=== PATIENT | female | born 1955 | race Caucasian/White ===

== ENCOUNTER 2017-07-15 08:58 | Emergency (ER) | payer OTHER, SELFPAY | END 2017-07-15 09:31 | disposition home or self-care (01) | PROVIDERS: Emergency Provider Nurse Practitioner Family; Family Provider Emergency Medicine; Visit Provider Nurse Practitioner Family | DX: J20.9 Acute bronchitis, unspecified (principal); F17.210 Nicotine dependence, cigarettes, uncomplicated; Z88.0 Allergy status to penicillin; Z79.82 Long term (current) use of aspirin; Z79.899 Other long term (current) drug therapy; I10 Essential (primary) hypertension | CPT/HCPCS: 99201 ==

== ENCOUNTER → 2018-04-11 11:08 | Outpatient (CLI) | payer BC, SELFPAY ==
[2018-04-11 14:54] LABS: Alanine Aminotransferase 35 U/L (12-78); Alkaline Phosphatase 183 U/L (46-116); Aspartate Amino Transferase 15 U/L (15-37); Bilirubin,Direct 0.1 mg/dL (0.0-0.2); Bilirubin,Indirect 0.2 mg/dL (0.0-0.9); Bilirubin,Total 0.3 mg/dL (0.2-1.0); Chol/HDL Ratio 3.8 (1-3.5); Cholesterol 220 mg/dL (140-200); HDL Cholesterol 58 mg/dL (29-89); LDL Cholesterol 127 mg/dL (0-130); Total Protein,Serum 6.5 gm/dL (6.4-8.2); Triglycerides 174 mg/dL (30-200); VLDL Cholesterol 35 mg/dL (0-40)
== END ==
PROVIDERS: PCP Emergency Medicine; Visit Provider Urology
DX: E78.5 Hyperlipidemia, unspecified (principal); I25.10 Atherosclerotic heart disease of native coronary artery without angina pectoris
CPT/HCPCS: 36415; 80061; 80076

== ENCOUNTER → 2018-04-24 06:06 | Outpatient (CLI) | payer BC, SELFPAY ==
--- NOTE | 2018-04-24 06:09 | NM_ITS ---
History and Indications: Coronary artery disease, hypertension, hyperlipidemia, tobacco use, family history Procedure: Patient received a 0.4 mg of intravenous Lexiscan, resting heart rate was 71 bpm resting blood pressure 138/78, with Lexiscan maximum heart rate achieved was 100 beats per minute, which is less than 85% of the pressure 123/57. With Lexiscan patient complained of shortness of breath. Electrocardiogram: Resting electrocardiogram showed sinus rhythm nonspecific ST-T changes, with Lexiscan there is less than 1.[address] segment depression noted from the baseline EKG. The EKG portion of the Lexiscan Myoview is nondiagnostic. Cardiac stress and resting SPECT images: Cardiac stress and rest SPECT images were obtained using technetium 99 Myoview 31.2 mCi at stress and 10.6 mCi at rest. Gated SPECT further analysis of segmental wall motion and calculation of the ejection fraction also done. Cardiac stress and the suspect show uniform myocardial activity without segmental perfusion abnormality, computer derived ejection fraction is over 65% with no regional wall motion abnormality, right ventricle is normal size and contractility. Conclusion: 1. The EKG portion of the Lexiscan is nondiagnostic. 2. No scintigraphic evidence of reversible, computer derived ejection fraction is over 65% with no regional wall motion abnormality, right ventricle is normal size and contractility. 3. Normal Lexiscan Myoview study.
--- NOTE | 2018-04-24 06:09 | XR_ITS ---
XR chest 2V HISTORY: ITS.REASON: Tobacco abuse, CAD ORDERING PHYSICIAN: Gabino Scott MD PATIENT AGE: 62 years COMPARISON: 04/27/2017 FINDINGS: The cardiomediastinal silhouette and pulmonary vascularity are within normal limits. Coronary artery stents are present. Calcified granuloma right lung base The lungs are clear without infiltrates, suspicious nodules, or pleural effusions. No acute bony abnormalities. IMPRESSION: No change with no acute finding
--- NOTE | 2018-04-24 07:10 | HMH.ITSHM ---
NITRO MONTELUKAST DILTIAZEM CITALOPRAM PLAVIX ATORVASTATIN ASA ALBUTEROL
== END ==
PROVIDERS: Family Provider Emergency Medicine; PCP Emergency Medicine; Visit Provider Internal Medicine
DX: I25.10 Atherosclerotic heart disease of native coronary artery without angina pectoris (principal); I11.9 Hypertensive heart disease without heart failure; E78.5 Hyperlipidemia, unspecified; F17.200 Nicotine dependence, unspecified, uncomplicated; Z95.5 Presence of coronary angioplasty implant and graft
CPT/HCPCS: 71046; 78452; 93017; A9502; J2785

== ENCOUNTER → 2018-06-06 14:32 | Outpatient (CLI) | payer BC, SELFPAY ==
--- NOTE | 2018-06-06 14:35 | CT_ITS ---
CT sinus wo con CLINICAL INDICATION: Chronic sinusitis, facial pressure ITS.REASON: Sinusitis ORDERING PHYSICIAN: Benito Callejas MD PATIENT AGE: 63 years COMPARISON: None TECHNIQUE:Axial images obtained with sagittal and coronal reformats. All CT scans at the facility use one or more dose reduction, viz: automated exposure control, ma/kV adjustment per patient size (including targeted exams where dose is matched to indication, i.e. head), or iterative reconstruction technique. FINDINGS: There is opacification of the mid left ethmoid air cell and there is minimal mucosal thickening involving the floor the right maxillary sinus. No air-fluid levels are evident. No sinus mass. The sphenoid and frontal sinuses are unremarkable. There is mild rightward nasal septal deviation. The ostomy or units are patent. The orbits have an unremarkable appearance. No mastoid effusion. The middle ears are aerated. TMJs are unremarkable. IMPRESSION: 1. No evidence of acute sinusitis. 2. Mild sinus inflammatory changes with opacified left mid ethmoid air cell minimal mucosal thickening in the right maxillary sinus 3. Rightward nasal septal deviation
== END ==
PROVIDERS: PCP Emergency Medicine; Visit Provider Otolaryngology
DX: J32.9 Chronic sinusitis, unspecified (principal)
CPT/HCPCS: 70486

== ENCOUNTER → 2018-08-23 08:34 | Outpatient (CLI) | payer BC, SELFPAY ==
--- NOTE | 2018-08-23 08:39 | NM_ITS ---
NM hepatobiliary w pharm HISTORY: Abdominal pain with nausea and diarrhea, sludge on ultrasound ITS.REASON: ruq pain ORDERING PHYSICIAN: Hyacinth Buckley PATIENT AGE: 63 years COMPARISON: None DOSE: 8.05 mCi technetium Choletec 1.7 mcg of CCK. No pain reported with CCK. FINDINGS: Homogeneous activity is present within the hepatic parenchyma. Activity is present in the gallbladder by 10 minutes. Activity is present in the small bowel by 10 minutes. The gallbladder ejection fraction is calculated to be 18% The patient did not report pain or other symptoms during CCK infusion. IMPRESSION: Unremarkable hepatobiliary scan and gallbladder ejection fraction. No evidence of common or cystic duct obstruction The gallbladder ejection fraction is low at 18%. No pain reported with CCK infusion
--- NOTE | 2018-08-23 08:39 | MM_ITS ---
MM Dig screening mamm BI w/CAD ORDERING PHYSICIAN : Hyacinth Buckley PATIENT AGE: 63 years GENDER: Female COMPARISON: April 2017, & January 2015 INDICATION: .Routine Screening. No hormones. No complaints.. Family history. Mother with breast cancer postmenopausal TECHNIQUE: Standard CC and MLO images were obtained. R2 CAD reviewed. Additional left breast CC nipple profile view FINDINGS: Low-density breast bilaterally with no dominant breast lesion/ mass. No suspicious calcifications either breast. RIGHT BREAST:Stable. Follow up one year LEFT BREAST: There is a superficial dermal nodule marked at the deep medial left breast.. Marked with a mole marker. It is seen on both views and does appear an has shown progressive enlargement compared to 2015 & 2017 mammogram studies.. . Smooth Well-defined margins This this enlarging, most likely sebaceous cyst Now measures up to 18 mm diameter on today's study. In 2015 at measured up to 1 cm diameter. Clinical correlation and inspection of this skin skin nodule required here.... & depending on its character clinically it may you may want to consider local excision or possibly to dermatology consult. (I as I recall there are 3 techniques to remove sebaceous cyst: conventional wide excision, minimal excision and punch biopsy excision) .. Although we could perform FNA sampling under ultrasound I doubt this would be of much benefit, except to further confirm this as a benign indolent entity which already strongly favor it is. I see that there was a previous ultrasound of this area May 12, 2017 which was strongly suggestive of a debris-filled cyst at 9:00/likely Semisolid material involving the dermal layer & most consistent with a sebaceous cyst. IMPRESSION: . 1. No suspicious lesions arising from breasts themselves. 2. There is a Enlarging Skin Nodule at far Medial Left Breast again noted..Suspect likely sebaceous cyst based on its appearance 2017 studies This has shown gradual progressive enlargement since 2015 and 2017 mammogram. Warrants clinical inspection & correlation.. . Although most likely benign sebaceous cyst type feature, may want to consider surgical excision or dermatology consult if this area problematic. Or continues to enlarge. 3. From imaging perspective ,suggest repeat left mammogram survey 6-7 months to evaluate for further enlargement of this benign-appearing feature, if it is not further pursued clinically BI-RADS Category: 3 Probably Benign Finding Short Term Follow-up RECOMMENDED FOLLOW-UP: 6M 6 MONTH FOLLOW-UP (A letter has been sent to the patient regarding results of the study.)
== END ==
PROVIDERS: PCP Nurse Practitioner Family; Visit Provider Nurse Practitioner Family
DX: Z12.31 Encounter for screening mammogram for malignant neoplasm of breast (principal); K82.8 Other specified diseases of gallbladder; R10.11 Right upper quadrant pain
CPT/HCPCS: 77067; 78227; A9537; J2805

== ENCOUNTER → 2019-01-22 12:50 | Outpatient (POV) | payer BC, SELFPAY | PROVIDERS: Visit Provider Specialist | DX: R20.0 Anesthesia of skin (principal); R20.2 Paresthesia of skin; M25.522 Pain in left elbow | CPT/HCPCS: 95886; 95908 ==

== ENCOUNTER → 2019-02-19 09:41 | Outpatient (CLI) | payer BC, SELFPAY ==
--- NOTE | 2019-02-19 09:46 | XR_ITS ---
XR wrist LT min 3V HISTORY ITS.REASON: pain ORDERING PHYSICIAN: Edilma Palomino MD PATIENT AGE: 63 years Comparison: None FINDINGS There are mild osteoarthritic changes of the first metacarpal carpal joint. No fracture or dislocation. No lytic or blastic change. 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
[2019-02-19 12:24] LABS: Basophils # 0.1 K/mm3 (0-0.2); Eosinophils # 0.2 K/mm3 (0.0-0.4); Hematocrit 49.9 % (37.0-47.0); Hemoglobin 16.1 g/dL (12.2-16.2); Lymphocytes # 3.1 K/mm3 (0.7-4.5); Lymphocytes % 40.5 % (10-50); Mean Corpuscular HGB Conc 32.3 g/dL (31.8-35.4); Mean Corpuscular Hemoglobin 29.5 pg (27.0-31.2); Mean Corpuscular Volume 91.4 fl (81-99); Mean Platelet Volume 7.7 fl (7.4-10.4); Monocytes # 0.4 K/mm3 (0.1-1.0); Monocytes % 5.6 % (1.7-9.3); Neutrophils # 3.9 K/mm3 (1.8-7.8); Neutrophils % 50.9 % (37.0-80.0); Platelet Count 289 K/mm3 (142-424); Red Blood Count 5.46 M/mm3 (4.20-5.40); White Blood Count 7.7 K/mm3 (4.8-10.8)
[2019-02-19 13:04] LABS: INR 0.92 (0.9-1.1); Prothrombin Time 9.6 seconds (9.4-11.8)
[2019-02-19 13:11] LABS: Alanine Aminotransferase 45 U/L (12-78); Albumin Level 4.2 gm/dL (3.4-5.0); Albumin/Globulin Ratio 1.6 (1.1-1.8); Alkaline Phosphatase 203 U/L (46-116); Anion Gap 14.4 mEq/L (5-15); Aspartate Amino Transferase 20 U/L (15-37); Bilirubin,Total 0.3 mg/dL (0.2-1.0); Blood Urea Nitrogen 9 mg/dL (7-18); Calcium 9.4 mg/dL (8.5-10.1); Carbon Dioxide 27 mmol/L (21.0-32.0); Chloride 105 mmol/L (98-107); Creatinine,Serum 0.72 mg/dL (0.55-1.02); Estimated Glomerular Filt Rate 82 ml/min (>60); GFR (African American) 99 ML/MIN (>60); Globulin 2.6 gm/dl (1.3-3.2); Glucose 90 mg/dL (74-106); Potassium 4.4 mmoL/L (3.5-5.1); Sodium 142 mmol/L (136-145); Total Protein,Serum 6.8 gm/dL (6.4-8.2)
== END ==
PROVIDERS: PCP Emergency Medicine; Visit Provider Orthopaedic Surgery
DX: R20.0 Anesthesia of skin (principal); R20.2 Paresthesia of skin; G56.02 Carpal tunnel syndrome, left upper limb
CPT/HCPCS: 36415; 73110; 80053; 85025; 85610

== ENCOUNTER → 2019-02-19 12:03 | Outpatient (CLI) | payer BC, SELFPAY | PROVIDERS: Visit Provider Orthopaedic Surgery | DX: G56.02 Carpal tunnel syndrome, left upper limb (principal) | CPT/HCPCS: 36415; 80053; 85025; 85610; 93005 ==

== ENCOUNTER 2019-04-26 10:00 | Outpatient (RCR) | payer BC, SELFPAY ==
--- NOTE | 2019-03-22 09:42 | HMH.OTOPEV ---
OT Inpatient Evaluation Rehab OT Outpatient Eval Start: 03/22/19 09:20 Freq: Status: Active Protocol: Document 03/22/19 09:20 TFRY (Rec: 03/22/19 09:42 TFRY [id number]) Electronically Signed By Demetra Mahan, OT 03/22/19 09:20 Outpatient Therapy Subjective History Subjective History This is a 63 year old right handed female referred to occupational therapy as patient is status post left carpal tunnel release and cubital tunnel release with ulnar nerve transposition on . Patient reports that they have been bothering her for years but got that she was unable to do her job as her hand was going numb. Chief Complaint Pain Symptom Type Ache,Dull Symptoms Relieved By Rest/Positioning,OTC Meds Symptoms Aggravated By Physical Activity Prior Functional Limitations None Current Functional Limitations Reaching,Lifting,Housework, Sleeping Symptom Description Activity Dependent Level of pain today (0-10) 4 Pain scale - at its best (0-10) 1 Pain scale - at its worst (0-10) 4 Shoulder/Elbow Eval Shoulder Objective Measurements Elbow Objective Measurements Elbow ROM Left decreased ROM elbow exam standard left pain with active ROM elbow exam standard left pain with passive ROM elbow exam left standard Elbow Extension Active Range of Motion ( 22 degrees) Elbow Extension Passive Range of Motion 10 (degrees) Elbow Flexion Active Range of Motion ( 110 degrees) Elbow Flexion Passive Range of Motion ( 134 degrees) Elbow Pronation of Forearm Range of WFL Motion (degrees) Elbow Supination of Forearm Range of WFL Motion (degrees) Elbow ROM Limitations Pain Elbow MMT Elbow/Forearm Strength Reason Not Orthopedic Precautions Measured Wrist/Hand Eval Wrist Range of Motion Wrist ROM Reason Not Measured Within Functional Limits Wrist Manual Muscle Testing Left Wrist Extension Strength Grade 3+ Fair+ Wrist Flexion Strength Grade 3+ Fair+ Wrist Radial Deviation Strength Grade 3+ Fair+ Wrist Ulnar Deviation Strength Grade 3+ Fair+ OT Outpatient Assessment Impairments Problems/Impairments Impaired Range of Motion, Impaired Strength,Impaired Lifting,Impaired Household Care,Impaired Work Activ
== END 2019-04-26 10:05 | disposition home or self-care (01) ==
LOC: OT 10:00
PROVIDERS: Visit Provider Orthopaedic Surgery
DX: G56.01 Carpal tunnel syndrome, right upper limb (principal)
CPT/HCPCS: 97014; 97110; 97140; 97165; G0283

== ENCOUNTER 2019-12-07 17:42 | Emergency (ER) | payer BC, SELFPAY ==
[2019-12-07 17:55] VITALS: BP 143/86; PULSE 92; RESP 22; TEMP 36.8; O2SAT 95; BMI 32.8
--- NOTE | 2019-12-07 18:00 | HMH.EDUTC ---
[facility] [place] Disposition Clinical Impression: Sinusitis Qualifiers: Sinusitis location: unspecified location Chronicity: acute Recurrence: not specified as recurrent Qualified Code(s): J01.90 - Acute sinusitis, unspecified Disposition: Home, Self-Care Condition on Discharge: Good Instructions: Sinusitis, Sinus Headache, DI for Sinusitis Additional Instructions: Start antibiotic. Sinus infections may take 2-3 days to notice much improvement so be sure to use conservative measures as discussed for symptoms Flonase 2 spray in each nostril daily to help with nasal congestion, sinus an ear pressure/inflammation Lots of Fluids Sleep elevated Humidifer/vaporizer Over the counter Motrin and/or Tylenol as directed on package as needed for pain and fever Follow up with family doctor if no improvement or any worsening of symptoms Rest and plenty of fluids Return if needed Straight to ER if any life threatening symptoms Prescriptions: Azithromycin [Z-Christoph 250mg Tab] 250 mg PO DIRECTED #6 tab Transmission Status: Pending to [id number] Referrals: Asaf Lubin MD [Primary Care Provider] - As needed Forms: Work/School Release Medical Decision Making - Barber Inquiry Pt receiving controlled substance: No Barber was queried for this patient: No Vital Signs: 12/07/19 17:55 Temperature 98.3 F Temperature Source Oral Pulse Rate [Right Brachial] 92 H Respiratory Rate 22 Blood Pressure [Right Arm] 143/86 H Blood Pressure Mean [Right Arm] 105 Blood Pressure Source [Right Arm] Automatic Cuff Blood Pressure Position [Right Arm] Sitting 02 Sat by Pulse Oximetry 95 Oxygen Delivery Method Room Air - Lab Data Lab results reviewed: Yes: I reviewed the patient's lab results. - Reevaluation(s) Time: 18:09 Reevaluation #1: Patient states that she has taken azithromycin before without reactions or complications [facility] [place] HPI - General Stated complaint: WEAKNESS,PAIN,LIGHT HEADED Time Seen by Provider: 12/07/19 18:00 Mode of Arrival: Ambulatory Source of Information: Patient Limitations: No Limitations Description of Symptoms (Recalled from Triage Doc. by RN): PATIENT C/O WEAKNESS, PAIN IN BACK AND KNEES, AND NAUSEA X 1 WEEK; NO KNOWN CONTACTS, PATIENT WORKS AT [employer] Symptoms (Recalled from RN notes): Yes Resp Symptoms (Recalled from RN notes): No Skin Symptoms (Recalled from RN notes): No MS Symptoms (Recalled from RN notes): No Functional Status (Recalled from RN notes): WNL - History of Present Illness Provider Complaint: Patient state that she hasnt been well for about a week States that she feels run down, tired, sinus pain and pressure and achy like feeling in her lower back and some burning with urination and nausea on and off wanted to get checked State that when she bends over she has pressure like feeling in her face around her eyes and cheeks like she has had before with sinus infection and wanted to get checked for UTI - Related Data Home Medications Medication Instructions Recorded Confirmed Aspirin [Low Dose Aspirin EC] 81 mg PO DAILY 10/23/17 10/14/19 Cetirizine HCl 10 mg PO DAILY 03/05/19 10/14/19 Montelukast Sodium See Rx Instructions .ROUTE .COMPLEX 10/14/19 10/14/19 Previous Rx's Medication Instructions Recorded nitroglycerin 0.4 mg sublingual 0.4 mg SUBLINGUAL Q5M PRN #25 tab 10/04/17 tablet Albuterol Sulfate [Albuterol HFA 1 - 2 puffs IH Q4-6H PRN #1 inh 01/20/18 Inhaler] atorvastatin 80 mg tablet 80 mg PO DAILY #90 tab 10/31/18 Albuterol Sulfate [Albuterol HFA 1 - 2 puffs IH Q4-6H PRN #1 inh 03/28/19 Inhaler] diltiazem HCl 240 mg 240 mg PO DAILY #90 cap 05/01/19 capsule,extended release 24 hr Promethazine/Dextromethorphan 5 ml PO Q6HP PRN #480 ml 10/14/19 [Promethazine-Dm Syrup] Albuterol Sulfate [Albuterol HFA 1 - 2 puffs IH Q4-6H PRN #1 inh 10/18/19 Inhaler] Azithromycin [Z-Christoph 250mg Tab*] 250 mg PO UD DOSE PK #6 tab 10/18/19 citalopram 40
[2019-12-07 18:10] VITALS: BP 143/86; PULSE 92; RESP 22; TEMP 36.8; O2SAT 95
[2019-12-07 18:11] LABS: Apearance,Urine Clear (Clear); Bilirubin,Urine Negative (Negative); Blood, Urine Negative (Negative); Color,Urine Yellow (Yellow); Glucose,Urine (UA) Negative (Negative); Ketones,Urine Negative (Negative); Protein,Urine Negative (Negative); Specific Gravity, Urine 1.005 (1.005-1.030)
[2019-12-07 18:12] LABS: UTC Leukocyte Esterase,Urine Negative (Negative); UTC Nitrate,Urine Negative (Negative); Urobilinogen,Urine 0.2 EU/dl (0.2)
== END 2019-12-07 18:12 | disposition home or self-care (01) ==
PROVIDERS: Emergency Provider Nurse Practitioner; PCP Emergency Medicine
DX: J01.90 Acute sinusitis, unspecified (principal); M54.5 Low back pain; I10 Essential (primary) hypertension; E78.5 Hyperlipidemia, unspecified; F17.210 Nicotine dependence, cigarettes, uncomplicated
CPT/HCPCS: 81003; 99201

== ENCOUNTER 2019-12-21 09:48 | Emergency (ER) | payer BC, SELFPAY ==
[2019-12-21 09:48] VITALS: BP 90/79; PULSE 83; RESP 18; TEMP 37.3; O2SAT 96; BMI 32.8
--- NOTE | 2019-12-21 09:49 | HMH.EDGENADL ---
ED Disposition Clinical Impression: Atypical chest pain Disposition: Home, Self-Care Condition on Discharge: Good Instructions: DI for Atypical Chest Pain Additional Instructions: Additional instructions for CHEST PAIN: See Dr. Scott next week, call for appointment. Return immediately if worsening chest pain, vomiting, shortness of breath, fever, coughing of blood. Referrals: Provider,Referral, [Referring] - - Critical Care Critical Care Time: No Attestation: On , the high probability of a clinically significant, sudden or life threatening deterioration of the following system(s) required my full and direct attention, intervention and personal management. The time I documented below is in addition to time spent performing reported procedures but includes the following listed in this critical care notation. Medical Decision Making - Medical Records Medical records reviewed: Yes: I reviewed the patient's medical records. - Barber Inquiry Pt receiving controlled substance: No Vital Signs: 12/21/19 09:48 12/21/19 09:57 12/21/19 10:13 Temperature 99.1 F Temperature Source Oral Pulse Rate [Right] 83 75 Respiratory Rate 18 Blood Pressure [Right Arm] 90/79 L 136/78 120/53 L Blood Pressure Mean [Right Arm] 82 97 75 Blood Pressure Source [Right Arm] Automatic Cuff Blood Pressure Position [Right Arm] Sitting 02 Sat by Pulse Oximetry 96 95 Oxygen Delivery Method Room Air 12/21/19 11:01 12/21/19 13:00 Temperature Temperature Source Pulse Rate [Right] 62 74 Respiratory Rate Blood Pressure [Right Arm] 141/68 H 136/89 Blood Pressure Mean [Right Arm] 92 104 Blood Pressure Source [Right Arm] Automatic Cuff Automatic Cuff Blood Pressure Position [Right Arm] Sitting Sitting 02 Sat by Pulse Oximetry 95 97 Oxygen Delivery Method Room Air Room Air - Lab Data Lab results reviewed: Yes: I reviewed the patient's lab results. Lab Results 12/21/19 09:50: WBC 8.4, RBC 5.07, Hgb 15.5, Hct 46.2, MCV 91.1, MCH 30.6, MCHC 33.6, RDW 13.4, Plt Count 234, MPV 8.2, Neut % (Auto) 48.8, Lymph % (Auto) 38.7, [place] % (Auto) 6.8, Eos % (Auto) 3.3, Baso % (Auto) 2.3 H, Neut # (Auto) 4.1, Lymph # (Auto) 3.3, [place] # (Auto) 0.6, Eos # (Auto) 0.3, Baso # (Auto) 0.2 12/21/19 09:50: Sodium 137, Potassium 4.0, Chloride 102, Carbon Dioxide 24, Anion Gap 15.0, BUN 11, Creatinine 0.70, Estimated Creat Clear 76, Estimated GFR 85, Est GFR ( Amer) 102, Glucose 107 H, Calcium 9.4, Total Bilirubin 0.3, AST 38 H, ALT 37, Alkaline Phosphatase 202 H, Troponin I < 0.01, Total Protein 7.3, Albumin 4.9, Globulin 2.4, Albumin/Globulin Ratio 2.0 H 12/21/19 12:48: Troponin I < 0.01 Result diagrams: 12/21/19 09:50 12/21/19 09:50 Orders (Tests/Meds): ED MEDICATIONS Discontinued Medications Generic Name Dose Route Start Last Admin Trade Name Freq PRN Reason Stop Dose Admin Aspirin 324 mg 12/21/19 09:53 12/21/19 10:03 Aspirin 81mg Chewable Tablet PO 12/21/19 09:54 324 mg ONCE ONE Administration ORDERS Category Date Time Status Troponin I Q3H Lab 12/21/19 16:00 Ordered - Radiology Data #1 Image(s): Chest Image Reviewed: Yes I reviewed the patient's radiology image, Yes I have reviewed radiologist's interpretation Preliminary Findings: Normal/NAD - ECG Data Tracing #1 EKG interpreted by Mane Westbrook MD: Rhythm: sinus Rate: 78 [place]: Left Ectopy: none Conduction: normal ST Segment Changes: none T Wave Changes: none Q Waves: none Low voltage QRS No evidence of acute ischemia or injury Baseline artifact present, but I consider the EKG adequate for accurate interpretation. - Physician Consults Physician Consulted: ANDRIA Singh, for Dr. Scott Time: 11:26 Reason -: Cardiology Eval/Care Comment/Response: Perform second troponin, if negative, discharge for follow-up in the office next week. General Adult HPI - General Chief complaint: Chest Pain Stated compla
--- NOTE | 2019-12-21 09:53 | ECG_ITS ---
APPROVED REPORT Exam: Resting ECG HR:78 bpm ECG Measurements Heart Rate 78 AXES CA 138 P 60 QRSd 80 QRS -45 QT 394 T 27 QTc 449 <Conclusion> Normal sinus rhythm Low voltage QRS Left anterior fascicular block Abnormal ECG Electronically signed by : Rito Jaramillo, 12/23/2019 07:13:06
--- NOTE | 2019-12-21 09:53 | XR_ITS ---
PROCEDURE: XR CHEST 2V CLINICAL HISTORY: cp, smoking history COMPARISON: [facility] CT CHEST W/O CONTRAST from 06/28/2016 CXR2V XR chest 2V from 05/03/2018 XR CHEST 2V from 03/28/2019 XR CHEST 2V from 10/18/2019 FINDINGS: The cardiomediastinal silhouette and pulmonary vascularity are within normal limits. The lungs are clear without infiltrates, suspicious nodules, or pleural effusions. No acute bony abnormalities. IMPRESSION: No acute findings. Dictated by: Dr. Wily Buckley MD 12/21/2019 10:[address] Wily Buckley MD in [place] 12/21/2019 10:16
[2019-12-21 09:57] VITALS: BP 136/78
[2019-12-21 10:02] LABS: Basophils # 0.2 K/mm3 (0-0.2); Basophils % 2.3 % (0.1-2.0); Eosinophils # 0.3 K/mm3 (0.0-0.4); Eosinophils % 3.3 % (0.1-12.0); Hematocrit 46.2 % (37.0-47.0); Hemoglobin 15.5 g/dL (12.2-16.2); Lymphocytes # 3.3 K/mm3 (0.7-4.5); Lymphocytes % 38.7 % (10-50); Mean Corpuscular HGB Conc 33.6 g/dL (31.8-35.4); Mean Corpuscular Hemoglobin 30.6 pg (27.0-31.2); Mean Corpuscular Volume 91.1 fl (81-99); Mean Platelet Volume 8.2 fl (7.4-10.4); Monocytes # 0.6 K/mm3 (0.1-1.0); Monocytes % 6.8 % (1.7-9.3); Neutrophils # 4.1 K/mm3 (1.8-7.8); Neutrophils % 48.8 % (37.0-80.0); Platelet Count 234 K/mm3 (142-424); Red Blood Count 5.07 M/mm3 (4.20-5.40); Red Cell Distribution Width 13.4 % (11.5-17.5); White Blood Count 8.4 K/mm3 (4.8-10.8)
--- NOTE | 2019-12-21 10:11 | PC.NURSE ---
Pt returned from rad.
[2019-12-21 10:13] VITALS: BP 120/53; PULSE 75; O2SAT 95
--- NOTE | 2019-12-21 10:56 | PC.NURSE ---
Called lab regarding delay in chemistry results spoke with talha. She stated that they were unsure why it didn't cross over but they would be releasing it now.
[2019-12-21 11:01] VITALS: BP 141/68; PULSE 62; O2SAT 95
--- NOTE | 2019-12-21 11:03 | PC.NURSE ---
Called lab for update on chemistries
[2019-12-21 11:05] LABS: Alanine Aminotransferase 37 U/L (12-78); Albumin Level 4.9 g/dl (3.5-5.0); Alkaline Phosphatase 202 U/L (38-126); Aspartate Amino Transferase 38 U/L (14-36); Bilirubin,Total 0.3 mg/dl (0.2-1.3); Blood Urea Nitrogen 11 mg/dl (7-17); Calcium 9.4 mg/dl (8.4-10.2); Carbon Dioxide 24 mmol/L (22.0-30.0); Chloride 102 mmol/L (98-107); Creatinine Clearance Estimated 76 mL/min (50-200); Estimated Glomerular Filt Rate 85 ml/min (>60); GFR (African American) 102 ML/MIN (>60); Globulin 2.4 g/dL (1.3-3.2); Glucose 107 mg/dl (74-100); Sodium 137 mmol/L (136-145); Total Protein,Serum 7.3 g/dl (6.3-8.2)
--- NOTE | 2019-12-21 11:17 | PC.NURSE ---
Calling lab again at this time due to chemistry results still not showing in Recommendi. She stated she would be releasing it right now.
[2019-12-21 11:18] LABS: Troponin I < 0.01 ng/ml (0.00-0.034)
--- NOTE | 2019-12-21 11:24 | PC.NURSE ---
dr moya speaking with babatunde perez
--- NOTE | 2019-12-21 12:46 | PC.NURSE ---
Troponin sent to lab
[2019-12-21 13:00] VITALS: BP 136/89; PULSE 74; O2SAT 97
[2019-12-21 13:36] LABS: Troponin I < 0.01 ng/ml (0.00-0.034)
[2019-12-21 13:59] VITALS: BP 133/87; PULSE 80; RESP 20; TEMP 36.8; O2SAT 98
== END 2019-12-21 14:01 | disposition home or self-care (01) ==
PROVIDERS: Emergency Provider Emergency Medicine; PCP Emergency Medicine
DX: R07.89 Other chest pain (principal); I25.10 Atherosclerotic heart disease of native coronary artery without angina pectoris; I25.2 Old myocardial infarction; E78.5 Hyperlipidemia, unspecified; I10 Essential (primary) hypertension; F17.210 Nicotine dependence, cigarettes, uncomplicated; Z88.0 Allergy status to penicillin
CPT/HCPCS: 71046; 80053; 84484; 85025; 93005; 99284

== ENCOUNTER → 2020-01-15 06:10 | Outpatient (CLI) | payer BC, SELFPAY ==
--- NOTE | 2020-01-15 06:10 | NM_ITS ---
APPROVED REPORT Exam: Nuclear Stress Test Indication: Chest pain, CAD, Hx of CT, High cholesterol, Tobacco use, Family history Patient Location: Outpatient Stress Tech: Zandra Cunha AR Tech:Ninfa Roberson, ARRT, RT (R)(N) Ht: 5 ft 3 in Wt: 185 lbs Bra Size: 40D HR: 64 bpm BP: 136/76 mmHg BSA: 1.87 m2 BMI: 32.7 History: Chest pain, CAD, Hx of CT, High cholesterol, Tobacco use, Family history Procedure: Patient received a 0.4 mg of intravenous Lexiscan, resting heart rate 64 bpm, resting blood pressure 136/76 mmHg, with Lexiscan maximum heart rate achived was 89 bpm which is Less than 85 % of the maximum predicted heart rate and blood pressure was 131/78 mmHg. With Lexiscan, patient denied any complaint of chest pain. Electrocardiogram Resting electrocardiogram showed sinus rhythm, with Lexiscan there is less than 1.[address] segment depression noted from the baseline EKG. The EKG portion of the Lexiscan Myoview is nondiagnostic. Cardiac Stress and Resting SPECT Images: Cardiac Stress and Resting SPECT images were obtained using technetium 99m Myoview 32.0 mCi stress and 10.16 mCi at rest. Gated SPECT for analysis of segmental wall motion and calculation of the ejection fraction also done. Cardiac stress and resting SPECT images show uniform myocardial activity without segmental perfusion abnormality, computer derived ejection fraction is over 65% with no regional wall motion abnormality, right ventricle is normal size and contractility, however there appears to be mild transient ischemic dilatation of the left ventricle seen, raising the concerns for presence of balanced ischemia. Conclusion: 1. The EKG portion of the Lexiscan Myoview is nondiagnostic. 2. No scintigraphic evidence of reversible ischemia seen, computer derived ejection fraction is over 65% with no regional wall motion abnormality, right ventricle is normal size and contractility. There is transient ischemic dilatation of the left ventricle seen raising the concerns for presence of balanced ischemia. 3. Abnormal Lexiscan Myoview study. Electronically signed by : Brice Mast, 01/15/2020 22:05:20
--- NOTE | 2020-01-15 06:10 | CA_ITS ---
APPROVED REPORT Exam: Pharmacologic Technologist: Zandra Cunha Ht: 5 ft 3 in Wt: 185 lbs BSA: 1.87 m2 HR: 64 bpm BP: 136/76 mmHg Indications: Chest pain Medical History Medications: Aspirin,,,,, Atorvastatin,,,,, Citalopram,,,,, Montelukast,,,,, CloPIdogrel,,,,, DilTiazem,,,,, CetIRIZINE,,,,, Stress Test Details Test: LEXISCAN HR Resting HR: 68 bpm Max Heart Rate (APMHR): 157 bpm Max HR Achieved: 92 bpm Target HR (85% APMHR): 133 bpm % of APMHR: 58 Recovery HR: 82 bpm BP Resting BP: 136.0/76.0 mmHg Max BP: 140.0/67.0 mmHg Recovery BP: 138.0/74.0 mmHg ECG Clinical Exercise duration: 04:00 min Highest Stage Achieved: Exercise capacity: 1.0 METs Stress ECG Conclusion Resting ECG: Normal sinus rhythm, slow R wave progression. Symptoms: Shortness of air, nausea. No chest pain Arrhythmias/Ectopy: None ST-T Changes: No significant changes. Conclusion: Unremarkable Lexiscan stress. Myoview images reported separately. Electronically signed by : Brice Mast, 01/15/2020 22:02:35
--- NOTE | 2020-01-15 07:08 | HMH.ITSHM ---
Current Home Medications as stated by this patient Angelika Lambert or specialty sales representative. []NITRO MONTELUKAST DILTIAZEM CLOPIDOGREL ATORVASTATIN CELEXA CETIRIZINE ASA
== END ==
PROVIDERS: PCP Emergency Medicine; Visit Provider Urology
DX: R07.89 Other chest pain (principal); R06.00 Dyspnea, unspecified; I11.9 Hypertensive heart disease without heart failure; Z95.5 Presence of coronary angioplasty implant and graft; E78.5 Hyperlipidemia, unspecified; R94.31 Abnormal electrocardiogram [ECG] [EKG]; Z72.0 Tobacco use
CPT/HCPCS: 78452; 93017; A9502; J2785

== ENCOUNTER 2020-02-01 08:33 | Day surgery (SDC) | payer BC, SELFPAY ==
[2020-02-01] VITALS (11 sets, daily range): BP systolic 88–115; BP diastolic 38–67; PULSE 62–70; RESP 16–20; TEMP 36.3; O2SAT 90–96; BMI 33.3
--- NOTE | 2020-02-01 | IR_ITS ---
APPROVED REPORT Patient Location: [facility] [place]: KAYE Rojas RT (R) PROCEDURES Left heart catheterization Left ventriculogram Selective coronary angiogram INDICATION High risk abnormal Myoview, Known coronary artery disease, Angina pectoris Informed consent was obtained prior to the procedure. COMPLICATIONS None Estimated Blood Loss: less than 10 ml TECHNIQUE One percent lidocaine used to anesthetize the right anterior aspect of the wrist. The right radial artery was accessed via the Seldinger technique. A 6 Thai sheath was placed in the right radial artery. 2.5 mg of verapamil, 800 mcg of nitroglycerin, 1mg Lidocaine and 5000 U Heparin were given through the arterial sheath. The trap catheter was also used to perform left heart catheterization, left ventriculogram and selective coronary angiogram. At the end of the procedure the sheath was removed good hemostasis was achieved using Traclet band, patient was transferred to the postop holding area in stable condition. ANGIOGRAPHIC RESULTS The left main artery Has a distal smooth eccentric 10 to 20% stenosis The left anterior descending artery Has a stent in the proximal segment which is widely patent free of in-stent restenosis with excellent proximal distal transitioning. The remaining LAD is mild luminal irregularities The circumflex artery Is a codominant vessel and has a smooth ostial 20% stenosis with mild mid vessel 20 to 30% [id number] stenoses The right coronary artery Is codominant proximally occluded with excellent [id number] collaterals. The [facility] ventriculogram reveals Preserved at 55% The left ventricular end-diastolic pressure 10 mmHg IMPRESSION Chronically occluded right coronary artery with excellent [id number] collateralization Preserved ejection fraction Normal left ventricular end-diastolic pressure PLAN 1. Medical management Electronically signed by : Gabino Scott, 02/01/2020 10:24:51
[2020-02-01 09:24] LABS: Basophils # 0.1 K/mm3 (0-0.2); Basophils % 0.9 % (0.1-2.0); Eosinophils # 0.3 K/mm3 (0.0-0.4); Eosinophils % 3.5 % (0.1-12.0); Hematocrit 47.1 % (37.0-47.0); Lymphocytes # 3.2 K/mm3 (0.7-4.5); Lymphocytes % 39.6 % (10-50); Mean Corpuscular Hemoglobin 31.3 pg (27.0-31.2); Mean Platelet Volume 8.4 fl (7.4-10.4); Monocytes # 0.5 K/mm3 (0.1-1.0); Monocytes % 6.6 % (1.7-9.3); Neutrophils % 49.3 % (37.0-80.0); Platelet Count 228 K/mm3 (142-424); Red Blood Count 5.12 M/mm3 (4.20-5.40); Red Cell Distribution Width 13.3 % (11.5-17.5); White Blood Count 8.2 K/mm3 (4.8-10.8)
[2020-02-01 09:30] LABS: Chloride 109 mmol/L (98-107); Potassium 4.3 mmoL/L (3.5-5.1); Sodium 139 mmol/L (136-145)
[2020-02-01 09:33] LABS: Anion Gap 8.3 mEq/L (5-15); Blood Urea Nitrogen 9 mg/dl (7-17); Carbon Dioxide 26 mmol/L (22.0-30.0); Creatinine Clearance Estimated 75 mL/min (50-200); Estimated Glomerular Filt Rate 101 ml/min (>60); GFR (African American) 122 ML/MIN (>60); Glucose 93 mg/dl (74-100)
== END 2020-02-01 13:35 | disposition home or self-care (01) ==
LOC: CATHLAB 08:34
PROVIDERS: PCP Emergency Medicine; Visit Provider Internal Medicine
DX: I25.118 Atherosclerotic heart disease of native coronary artery with other forms of angina pectoris (principal); I11.9 Hypertensive heart disease without heart failure; Z95.5 Presence of coronary angioplasty implant and graft; Z72.0 Tobacco use; I25.2 Old myocardial infarction; Z88.0 Allergy status to penicillin; Z79.899 Other long term (current) drug therapy
CPT/HCPCS: 80048; 85025; 93458; 99152; C1725; C1769; J1644; Q9967

== ENCOUNTER → 2020-09-01 13:35 | Outpatient (CLI) | payer OTHER, SELFPAY ==
[2020-09-01 14:02] LABS: Cholesterol 260 mg/dl (140-200); Triglycerides 321 mg/dl (30-150); VLDL Cholesterol 64 mg/dL (0-40)
[2020-09-01 14:03] LABS: Chol/HDL Ratio 4.3 (1-3.5); HDL Cholesterol 61 mg/dl (40-60)
[2020-09-01 14:14] LABS: Direct LDL Cholesterol 144.68 mg/dL (100-129)
== END ==
PROVIDERS: Visit Provider Internal Medicine
DX: E78.5 Hyperlipidemia, unspecified (principal); I11.9 Hypertensive heart disease without heart failure
CPT/HCPCS: 36415; 80061

== ENCOUNTER 2020-12-11 12:44 | Emergency (ER) | payer OTHER, SELFPAY ==
[2020-12-11 12:47] VITALS: BP 110/67; PULSE 81; RESP 18; TEMP 36.6; O2SAT 97; BMI 32.8
--- NOTE | 2020-12-11 12:55 | CT_ITS ---
PROCEDURE: CT HEAD/BRAIN WO CON CLINICAL INDICATION: fall on plavix Right-sided head injury with pain Head injury with headache/pain, contusion, abrasion or hematoma COMPARISON: CT HDWO CT HEAD W/O CONTRAST from 11/13/2015 TECHNIQUE: Axial images obtained. All CT scans at the facility use one or more dose reduction, viz: automated exposure control, ma/kV adjustment per patient size (including targeted exams where dose is matched to indication, i.e. head), or iterative reconstruction technique. FINDINGS: No midline shift, mass effect, intracranial hemorrhage, hydrocephalus, or extra-axial fluid collection is evident. The calvarium has an unremarkable appearance. No mastoid effusion. No sinus air-fluid level. IMPRESSION: No acute intracranial finding Dictated by: Damaso Li MD 12/11/2020 13:15 Damaso Li MD in [place] 12/11/2020 13:15
--- NOTE | 2020-12-11 12:57 | XR_ITS ---
PROCEDURE: XR RIBS RT MIN 3V W CXR1V CLINICAL INDICATION: fall with lateral pain COMPARISON: CT CHWO CT CHEST W/O CONTRAST from 06/28/2016 CR XR CHEST 2V from 03/28/2019 CR XR CHEST 2V from 10/18/2019 CR XR CHEST 2V from 12/21/2019 FINDINGS: Frontal view chest shows no acute finding. No displaced rib fractures apparent. No evidence of pneumothorax. Calcified granuloma is present in the right lower lobe. IMPRESSION: No acute findings. Dictated by: Damaso Li MD 12/11/2020 13:42 Damaso Li MD in [facility] 12/11/2020 13:42
--- NOTE | 2020-12-11 12:57 | HMH.EDFALL ---
ED Disposition Clinical Impression: Rib pain on right side Closed head injury Qualifiers: Encounter type: initial encounter Qualified Code(s): S09.90XA - Unspecified injury of head, initial encounter Fall Qualifiers: Encounter type: initial encounter Qualified Code(s): W19.XXXA - Unspecified fall, initial encounter Disposition: Home, Self-Care Condition on Discharge: Good Instructions: DI for Closed Head Injury, DI for Musculoskeletal Pain Referrals: Asaf Lubin MD [Primary Care Provider] - 3 days - Critical Care Critical Care Time: No Attestation: On 12/11/20, the high probability of a clinically significant, sudden or life threatening deterioration of the following system(s) required my full and direct attention, intervention and personal management. The time I documented below is in addition to time spent performing reported procedures but includes the following listed in this critical care notation. Medical Decision Making - Medical Records Medical records reviewed: Yes: I reviewed the patient's medical records. - Barber Inquiry Pt receiving controlled substance: No Vital Signs: 12/11/20 12:47 Temperature 97.9 F Temperature Source Oral Pulse Rate [Right] 81 Respiratory Rate 18 Blood Pressure [Right Arm] 110/67 Blood Pressure Mean [Right Arm] 81 02 Sat by Pulse Oximetry 97 Oxygen Delivery Method Room Air - Lab Data Lab results reviewed: Yes: I reviewed the patient's lab results. - Radiology Data #1 Image(s): Other (ribs/chest) Image Reviewed: Yes I reviewed the patient's radiology results Preliminary Findings: Normal/NAD - CT Data CT Scan: Head Time Received: 14:[address] Reviewed: Yes: I have reviewed the patient's CT results Preliminary Findings: Normal/NAD Medical Decision Narrative: Patient here with mechanical fall. X-ray of the ribs and CT head showed no acute traumatic injuries. Patient discharged home with advised to follow-up with PCP in 2 to 3 days for reevaluation. Fall HPI - General Stated Complaint: AO fell injured rt side of head and side Time Seen by Provider: 12/11/20 12:57 Mode of Arrival: Wheelchair Source of Information: Patient Limitations: No Limitations - History of Present Illness HPI Narrative: Is a 65-year-old female with a past medical history significant for hypertension, hyperlipidemia on Plavix who presents to the emergency department for a fall that occurred just prior to arrival. She states that she was trying to help her with getting into the car when the platform that she uses to help load him tripped her and she fell hitting the right side of her forehead. No visual changes. She also has some pain along the right rib cage. No difficulty breathing. No loss of consciousness. No lateralizing motor or sensory changes. - Related Data Home Medications Medication Instructions Recorded Confirmed Cetirizine HCl 10 mg PO DAILY 03/05/19 09/01/20 Previous Rx's Medication Instructions Recorded nitroglycerin 0.4 mg sublingual 0.4 mg SUBLINGUAL Q5M PRN #25 tab 10/04/17 tablet aspirin 81 mg tablet,delayed 81 mg PO DAILY #30 tab 09/01/20 release atorvastatin 80 mg tablet 80 mg PO DAILY #90 tab 09/01/20 clopidogrel 75 mg tablet 75 mg PO DAILY #90 tab 09/01/20 diltiazem HCl 240 mg 240 mg PO DAILY #90 cap 09/01/20 capsule,extended release 24 hr evolocumab 140 mg/mL subcutaneous 140 mg SQ Q2W #2 ml 09/02/20 pen injector montelukast 10 mg tablet See Rx Instructions .ROUTE 10/09/20 .COMPLEX #90 tab citalopram 40 mg tablet 40 mg PO DAILY #90 tab 11/05/20 Allergies Allergy/AdvReac Type Severity Reaction Status Date / Time Penicillins [PENICILLINS] Allergy Mild Verified 09/01/20 13:59 [facility] Allergy Unknown Uncoded 09/01/20 13:59 [facility] History - Hepatitis A Screen Attestation statement:: This patient has been screened for Hepatitis A risk factors. I have reviewed the patient's past medical histor
[2020-12-11 14:15] VITALS: BP 107/56; PULSE 77; O2SAT 96
[2020-12-11 14:26] VITALS: BP 107/56; PULSE 77; RESP 18; TEMP 36.7; O2SAT 97
== END 2020-12-11 14:33 | disposition home or self-care (01) ==
PROVIDERS: Emergency Provider Emergency Medicine; PCP Emergency Medicine
DX: S09.90XA Unspecified injury of head, initial encounter (principal); R07.81 Pleurodynia; W18.00XA Striking against unspecified object with subsequent fall, initial encounter; Y92.014 Private driveway to single-family (private) house as the place of occurrence of the external cause; I25.10 Atherosclerotic heart disease of native coronary artery without angina pectoris; I10 Essential (primary) hypertension; E78.5 Hyperlipidemia, unspecified; F41.9 Anxiety disorder, unspecified; I25.2 Old myocardial infarction; Z79.899 Other long term (current) drug therapy; Z88.0 Allergy status to penicillin
CPT/HCPCS: 70450; 71101; 99282

== ENCOUNTER 2021-04-04 12:53 | Emergency (ER) | payer OTHER, SELFPAY ==
[2021-04-04 12:54] VITALS: BP 143/74; PULSE 78; RESP 20; TEMP 36.8; O2SAT 98; BMI 33.6
--- NOTE | 2021-04-04 12:54 | ECG_ITS ---
APPROVED REPORT Exam: Resting ECG HR:88 bpm ECG Measurements Heart Rate 88 AXES AK 140 P 43 QRSd 82 QRS -48 QT 382 T 38 QTc 462 Conclusion Normal sinus rhythm Possible Left atrial enlargement Low voltage QRS Left anterior fascicular block Abnormal ECG Electronically signed by : Rito Jaramillo MD 04/06/2021 18:09:32
--- NOTE | 2021-04-04 13:32 | XR_ITS ---
PROCEDURE INFORMATION: Exam: XR Chest Exam date and time: 04/04/2021 1:32 PM Age: 65 years old Clinical indication: Pain; Other: Not specified; Patient HX: HX of heart attack at age 39, HX of stents, smoker; Additional info: Cp TECHNIQUE: Imaging protocol: XR of the chest. Views: 2 views. COMPARISON: CR XR RIBS RT MIN 3V W CXR1V 12/11/2020 1:05 PM FINDINGS: Lungs: There are mild perihilar streaky opacities and bronchial wall thickening with no focal airspace consolidation. Unchanged nodularity in the right lower lobe since 2019, likely an incidental granuloma. Pleural spaces: No pleural effusion. No pneumothorax. Heart/Mediastinum: No cardiomegaly. Coronary stents in place. Bones/joints: No acute abnormality. IMPRESSION: Findings suggest bronchitis or reactive airway disease, with no focal pneumonia.
[2021-04-04 13:41] LABS: Basophils # 0.1 K/mm3 (0-0.2); Eosinophils # 0.2 K/mm3 (0.0-0.4); Eosinophils % 1.9 % (0.1-12.0); Hematocrit 49.9 % (37.0-47.0); Hemoglobin 16.7 g/dL (12.2-16.2); Lymphocytes # 3.2 K/mm3 (0.7-4.5); Lymphocytes % 35.1 % (10-50); Mean Corpuscular HGB Conc 33.4 g/dL (31.8-35.4); Mean Corpuscular Hemoglobin 31.5 pg (27.0-31.2); Mean Corpuscular Volume 94.3 fl (81-99); Mean Platelet Volume 7.8 fl (7.4-10.4); Monocytes # 0.6 K/mm3 (0.1-1.0); Platelet Count 278 K/mm3 (142-424); Red Blood Count 5.29 M/mm3 (4.20-5.40); Red Cell Distribution Width 12.8 % (11.5-17.5); White Blood Count 9.1 K/mm3 (4.8-10.8)
[2021-04-04 13:42] LABS: Chloride 103 mmol/L (98-107)
[2021-04-04 13:43] LABS: Potassium 3.7 mmoL/L (3.5-5.1); Sodium 137 mmol/L (136-145)
[2021-04-04 13:45] LABS: Blood Urea Nitrogen 5 mg/dl (7-17); Creatinine Clearance Estimated 77 mL/min (50-200); Estimated Glomerular Filt Rate 101 ml/min (>60); GFR (African American) 122 ML/MIN (>60)
[2021-04-04 13:46] LABS: Anion Gap 15.7 mEq/L (5-15); Calcium 9.2 mg/dl (8.4-10.2); Carbon Dioxide 22 mmol/L (22.0-30.0); Glucose 129 mg/dl (74-100)
[2021-04-04 13:59] LABS: Troponin I < 0.01 ng/ml (0.00-0.034)
[2021-04-04 14:30] VITALS: BP 136/85; PULSE 79; RESP 20; O2SAT 94
--- NOTE | 2021-04-04 14:58 | HMH.EDGENADL ---
ED Disposition Clinical Impression: Atypical chest pain Disposition: Home, Self-Care Condition on Discharge: Good Referrals: Asaf Lubin MD [Primary Care Provider] - - Critical Care Critical Care Time: No Attestation: On 04/04/21, the high probability of a clinically significant, sudden or life threatening deterioration of the following system(s) required my full and direct attention, intervention and personal management. The time I documented below is in addition to time spent performing reported procedures but includes the following listed in this critical care notation. Medical Decision Making - Medical Records Medical records reviewed: Yes: I reviewed the patient's medical records. - Barber Inquiry Pt receiving controlled substance: No Vital Signs: 04/04/21 14:30 04/04/21 15:00 04/04/21 15:30 Pulse Rate 79 86 82 Respiratory Rate 20 15 21 Blood Pressure 136/85 141/79 H 130/82 Blood Pressure Mean 102 99 105 02 Sat by Pulse Oximetry 94 L 93 L 94 L 04/04/21 16:00 Pulse Rate 87 Respiratory Rate 20 Blood Pressure 135/87 Blood Pressure Mean 104 02 Sat by Pulse Oximetry 97 - Lab Data Lab Results 04/04/21 13:12: WBC 9.1, RBC 5.29, Hgb 16.7 H, Hct 49.9 H, MCV 94.3, MCH 31.5 H, MCHC 33.4, RDW 12.8, Plt Count 278, MPV 7.8, Neut % (Auto) 55.0, Lymph % (Auto) 35.1, Maury % (Auto) 7.0, Eos % (Auto) 1.9, Baso % (Auto) 1.0, Neut # (Auto) 5.0, Lymph # (Auto) 3.2, Maury # (Auto) 0.6, Eos # (Auto) 0.2, Baso # (Auto) 0.1 04/04/21 13:12: Sodium 137, Potassium 3.7, Chloride 103, Carbon Dioxide 22, Anion Gap 15.7 H, BUN 5 L, Creatinine 0.60, Estimated Creat Clear 77, Estimated GFR 101, Est GFR ( Amer) 122, Glucose 129 H, Calcium 9.2, Troponin I < 0.01 04/04/21 16:36: Troponin I < 0.01 Result diagrams: 04/04/21 13:12 04/04/21 13:12 Orders (Tests/Meds): ORDERS Category Date Time Status Troponin I Q3H Lab 04/04/21 19:45 Ordered Medical Decision Narrative: Patient is a 65-year-old female presents the ED today for atypical chest pain. Patient is well-appearing on initial evaluation in no acute distress, vital signs are stable, will further work-up with a CBC CMP troponin the chest x-ray. Differential diagnosis includes pneumonia, atypical viral infection, pulmonary embolism, ACS. No significant anemia, no new renal dysfunction, 02-hour troponin with no significant delta. Case further discussed with patient, patient has improved, x-ray read from radiologist with evidence of bronchitis, results relayed to the patient, states that she symptoms get allergies and bronchitis at this time of year. Patient's is currently in patient [facility], states she has a lot of stress with this, and believes it to be contributing to her current symptoms. Patient given return precautions return to ED with any new or worsening symptoms she has verbalized understanding with this plan. General Adult HPI - General Chief complaint: Chest Pain Stated complaint: CHEST PAIN Time Seen by Provider: 04/04/21 13:00 - History of Present Illness HPI narrative: Patient is a 65-year-old female presents the ED today for chest pain. Patient has had chest pain since this morning, states that it is a twinge that goes from the mid sternum over the left side of her chest. States she has had pain somewhat like this before but not exactly similar, has had 3 stents placed most recently 3 years ago for ACS. Patient states that her pain in the past with ACS was epigastric burning pain and she has not feeling that currently. Patient states she has not had a cough, denies shortness of breath abdominal pain nausea or vomiting, no pain down the left upper extremity no diaphoresis. - Related Data Home Medications Medication Instructions Recorded Confirmed Cetirizine HCl 10 mg PO DAILY 03/05/19 09/01/20 Previous Rx's Medication Instructions Recorded nitroglycerin 0.4 mg sublingual 0.4 mg SUBLINGUAL
[2021-04-04 15:00] VITALS: BP 141/79; PULSE 86; RESP 15; O2SAT 93
[2021-04-04 15:30] VITALS: BP 130/82; PULSE 82; RESP 21; O2SAT 94
[2021-04-04 16:00] VITALS: BP 135/87; PULSE 87; RESP 20; O2SAT 97
[2021-04-04 17:22] LABS: Troponin I < 0.01 ng/ml (0.00-0.034)
[2021-04-04 18:13] VITALS: BP 123/74; PULSE 74; RESP 20; TEMP 36.8; O2SAT 98
== END 2021-04-04 18:18 | disposition home or self-care (01) ==
PROVIDERS: Emergency Provider Student in an Organized Health Care Education/Training Program; PCP Emergency Medicine
DX: R07.89 Other chest pain (principal); I10 Essential (primary) hypertension; E78.5 Hyperlipidemia, unspecified; I25.2 Old myocardial infarction; F41.9 Anxiety disorder, unspecified
CPT/HCPCS: 71046; 80048; 84484; 85025; 93005; 99283

== ENCOUNTER → 2021-05-05 07:58 | Outpatient (CLI) | payer MEDICARE, SELFPAY ==
[2021-05-05 08:59] LABS: Alanine Aminotransferase 40 U/L (12-78); Albumin Level 4.3 g/dl (3.5-5.0); Alkaline Phosphatase 168 U/L (38-126); Aspartate Amino Transferase 31 U/L (14-36); Bilirubin,Direct 0.2 mg/dl (0.0-0.4); Bilirubin,Total 0.2 mg/dl (0.2-1.3); Chol/HDL Ratio 3.9 (1-3.5); Cholesterol 227 mg/dl (140-200); HDL Cholesterol 58 mg/dl (40-60); Total Protein,Serum 6.4 g/dl (6.3-8.2); Triglycerides 191 mg/dl (30-150); VLDL Cholesterol 38 mg/dL (0-40)
[2021-05-05 09:11] LABS: Direct LDL Cholesterol 133.63 mg/dL (100-129)
== END ==
PROVIDERS: Visit Provider Physician Assistant
DX: E78.5 Hyperlipidemia, unspecified (principal); I11.9 Hypertensive heart disease without heart failure; I25.10 Atherosclerotic heart disease of native coronary artery without angina pectoris; R94.31 Abnormal electrocardiogram [ECG] [EKG]; Z72.0 Tobacco use; Z95.5 Presence of coronary angioplasty implant and graft
CPT/HCPCS: 36415; 80061; 80076

== ENCOUNTER 2021-09-27 16:05 | Emergency (ER) | payer MEDICARE, SELFPAY ==
[2021-09-27 16:15] VITALS: BP 143/78; PULSE 81; RESP 19; TEMP 36.8; O2SAT 94; BMI 33.6
--- NOTE | 2021-09-27 17:01 | HMH.EDUTC ---
[facility] Disposition Clinical Impression: Acute bronchitis Qualifiers: Bronchitis organism: unspecified organism Qualified Code(s): J20.9 - Acute bronchitis, unspecified Disposition: Home, Self-Care Condition on Discharge: Good Instructions: Acute Bronchitis Additional Instructions: Start antibiotic today. Be sure to complete entire prescription even if feeling better Tylenol and ibuprofen as needed for pain or fever Humidifier/vaporizer/hot steamy shower Follow-up with primary care tomorrow. Follow-up immediately in the ER of the [facility] for new or worsening symptoms or no noticeable improvement over the next 48-72 hours. Stop smoking Inhaler every 4-6 hours as needed. Should help open airways improved cough, wheezing, shortness of breath Austyn Mckeon will not cause drowsiness to use at bedtime to help stop cough so that she can get some sleep Start steroids today. Helps with inflammation therefore coughing and wheezing. Follow directions on package. Prescriptions: Benzonatate [Benzonatate 100mg cap] 100 mg PO BID PRN 6 Days #12 cap PRN Reason: Cough Transmission Status: Pending to [facility] predniSONE [Prednisone 20mg Tab] 20 mg PO BID #10 tab Transmission Status: Pending to [facility] Albuterol Sulfate [Proventil Hfa] 6.7 gm IH Q4-6H PRN #1 each PRN Reason: Wheezing Transmission Status: Pending to [facility] Azithromycin [Zithromax 250mg tab] 250 mg PO DIRECTED #6 tab Transmission Status: Pending to [facility] Referrals: Asaf Lubin MD [Primary Care Provider] - Time of Disposition: 17:07 Medical Decision Making - Barber Inquiry Pt receiving controlled substance: No Vital Signs: 09/27/21 16:15 Temperature 98.3 F Temperature Source Oral Pulse Rate [Right Brachial] 81 Respiratory Rate 19 Blood Pressure [Right Arm] 143/78 H Blood Pressure Mean [Right Arm] 99 Blood Pressure Source [Right Arm] Automatic Cuff Blood Pressure Position [Right Arm] Sitting 02 Sat by Pulse Oximetry 94 L Oxygen Delivery Method Room Air [facility] HPI - General Chief complaint: Urgent [facility] Stated complaint: poss sinus infection Time Seen by Provider: 09/27/21 17:01 Mode of Arrival: Ambulatory Source of Information: Patient Limitations: No Limitations Description of Symptoms (Recalled from Triage Doc. by RN): PATIENT C/O PRODUCTIVE COUGH AND CHEST CONGESTION X 4 DAYS HEENT Symptoms (Recalled from RN notes): No Resp Symptoms (Recalled from RN notes): Yes Skin Symptoms (Recalled from RN notes): No MS Symptoms (Recalled from RN notes): No Functional Status (Recalled from RN notes): WNL - History of Present Illness Provider Complaint: 66 yr old female pressents for coughing up thick yellow sputum, and chest congestion for 3 days - Related Data Home Medications Medication Instructions Recorded Confirmed Cetirizine HCl 10 mg PO DAILY 03/05/19 05/06/21 Previous Rx's Medication Instructions Recorded nitroglycerin 0.4 mg sublingual 0.4 mg SUBLINGUAL Q5M PRN #25 tab 10/04/17 tablet aspirin 81 mg tablet,delayed 81 mg PO DAILY #30 tab 09/01/20 release atorvastatin 80 mg tablet 80 mg PO DAILY #90 tab 09/01/20 clopidogrel 75 mg tablet 75 mg PO DAILY #90 tab 09/01/20 citalopram 40 mg tablet 40 mg PO DAILY #90 tab 11/05/20 montelukast 10 mg tablet See Rx Instructions .ROUTE 01/07/21 .COMPLEX #90 tab evolocumab 140 mg/mL subcutaneous 140 mg SQ Q2W #2 ml 05/06/21 pen injector diltiazem HCl 240 mg See Rx Instructions .ROUTE 09/04/21 capsule,extended release 24 hr .COMPLEX #30 cap Albuterol Sulfate [Proventil Hfa] 6.7 gm IH Q4-6H PRN #1 each 09/27/21 Azithromycin [Zithromax 250mg 250 mg PO DIRECTED #6 tab 09/27/21 tab] Benzonatate [Benzonatate 100mg 100 mg PO BID PRN 6 Days #12 cap 09/27/21 cap] predniSONE [Prednisone 20mg 20 mg PO BID #10 tab 09/27/21 Tab] Allergies Allergy/AdvReac Type Severity Reaction Status
[2021-09-27 17:05] VITALS: BP 143/78; PULSE 81; RESP 19; TEMP 36.8; O2SAT 94
== END 2021-09-27 17:10 | disposition home or self-care (01) ==
PROVIDERS: Emergency Provider Nurse Practitioner Family; PCP Emergency Medicine
DX: J02.9 Acute pharyngitis, unspecified (principal); I10 Essential (primary) hypertension; I25.10 Atherosclerotic heart disease of native coronary artery without angina pectoris; I25.2 Old myocardial infarction; E78.5 Hyperlipidemia, unspecified; G40.909 Epilepsy, unspecified, not intractable, without status epilepticus; F17.210 Nicotine dependence, cigarettes, uncomplicated; Z95.0 Presence of cardiac pacemaker; Z79.51 Long term (current) use of inhaled steroids; Z79.52 Long term (current) use of systemic steroids; Z79.82 Long term (current) use of aspirin; Z79.899 Other long term (current) drug therapy; Z88.0 Allergy status to penicillin; Z91.030 Bee allergy status
CPT/HCPCS: 99213; G0463

== ENCOUNTER 2021-10-05 12:58 | Emergency (ER) | payer MEDICARE, SELFPAY ==
[2021-10-05 14:55] VITALS: BP 138/69; PULSE 95; RESP 18; TEMP 37.1; O2SAT 95; BMI 33.6
[2021-10-05 15:10] LABS: Adenovirus,PCR Not Detected (NotDetected); Bordetella Pertussis Not Detected (NotDetected); Chlamydophila Pneumoniae, PCR Not Detected (NotDetected); Coronavirus 19, PCR Not Detected (NotDetected); Coronavirus 229E Not Detected (NotDetected); Coronavirus NL63 Not Detected (NotDetected); Coronavirus OC43 Not Detected (NotDetected); Coronovirus HKU1,PCR Not Detected (NotDetected); Human Metapneumovirus Not Detected (NotDetected); Influenza A, PCR Not Detected (NotDetected); Influenza AH1, 2009 Not Detected (NotDetected); Influenza AH1, PCR Not Detected (NotDetected); Influenza AH3,PCR Not Detected (NotDetected); Influenza B, PCR Not Detected (NotDetected); Mycoplasma Pneumoniae, PCR Not Detected (NotDetected); Parainfluenza 1, PCR Not Detected (NotDetected); Parainfluenza 2, PCR Not Detected (NotDetected); Parainfluenza 3, PCR Not Detected (NotDetected); Parainfluenza 4, PCR Not Detected (NotDetected); Respiratory Syncytial Virus Not Detected (NotDetected); Rhinovirus/Enterovirus Not Detected (NotDetected)
--- NOTE | 2021-10-05 15:18 | HMH.EDUTC ---
[facility] Disposition Clinical Impression: Acute bronchitis Qualifiers: Bronchitis organism: unspecified organism Qualified Code(s): J20.9 - Acute bronchitis, unspecified Disposition: Home, Self-Care Condition on Discharge: Good Instructions: Acute Bronchitis, DI for Acute Bronchitis, DI for Viral Syndrome Additional Instructions: Drink plenty of fluids. Take tylenol or ibuprofen for pain or fever. Take the medications as directed. Follow up with your regular doctor. GO TO THE ER FOR ANY WORSENING SYMPTOMS Quarantine until you know the results of your covid-19 test. Notify your school or workplace of your results and follow their instructions regarding return to work/school. Don't start the oral steroids until tomorrow, since you had the shot here today. The cough medication (promethazine dm) will make you drowsy, so don't drive or operate heavy machinery after taking it. Prescriptions: Promethazine/Dextromethorphan [Promethazine-Dm Syrup] 5 ml PO Q6HP PRN #240 ml PRN Reason: Cough Transmission Status: Received by [facility] methylPREDNISolone [Medrol] 4 mg PO DIRECTED 6 Days #21 packet Transmission Status: Received by [facility] Referrals: Asaf Lubin MD [Primary Care Provider] - Time of Disposition: 16:20 Medical Decision Making - Medical Records Medical records reviewed: No: I reviewed the patient's medical records. - Barber Inquiry Pt receiving controlled substance: No Vital Signs: 10/05/21 14:55 10/05/21 15:59 Temperature 98.7 F 98.7 F Temperature Source Oral Pulse Rate 95 H Pulse Rate [Right Brachial] 95 H Respiratory Rate 18 18 Blood Pressure 138/69 Blood Pressure [Right Arm] 138/69 Blood Pressure Mean [Right Arm] 92 Blood Pressure Source [Right Arm] Automatic Cuff Blood Pressure Position [Right Arm] Sitting 02 Sat by Pulse Oximetry 95 Oxygen Delivery Method Room Air - Lab Data Lab Results 10/05/21 15:05: Chlamy pneumoniae PCR Not detected, Adenovirus (PCR) Not detected, B. pertussis DNA (PCR) Not detected, Coronavirus OC43 (PCR) Not detected, Coronavirus HKU1 (PCR) Not detected, Coronavirus 229E (PCR) Not detected, SARS-CoV-2 (PCR) Not detected, Coronavirus NL63 (PCR) Not detected, Human Metapneumovir PCR Not detected, Influenza A (H1) PCR Not detected, Influ A (H1N1/09) PCR Not detected, Influenza A (H3) PCR Not detected, Influenza Type A (PCR) Not detected, Influenza Type B (PCR) Not detected, M. pneumoniae (PCR) Not detected, Parainfluenza 1 (PCR) Not detected, Parainfluenza 2 (PCR) Not detected, Parainfluenza 3 (PCR) Not detected, Parainfluenza 4 (PCR) Not detected, RSV (PCR) Not detected, Entero/Rhino (PCR) Not detected Orders (Tests/Meds): ED MEDICATIONS Discontinued Medications Generic Name Dose Route Start Last Admin Trade Name Freq PRN Reason Stop Dose Admin Methylprednisolone Sodium Succinate 125 mg 10/05/21 16:16 10/05/21 16:25 Methylprednisolone Sod Succ 125mg Vial IM 10/05/21 16:17 125 mg ONCE ONE Administration [facility] HPI - General Stated complaint: chest congestion, soa Time Seen by Provider: 10/05/21 15:19 Mode of Arrival: Ambulatory Source of Information: Patient Limitations: No Limitations Description of Symptoms (Recalled from Triage Doc. by RN): PATIENT COUGH AND WEAKNESS SINCE TUESDAY. SHE STATES SHE WAS TREATED FOR BRONCHITIS LAST TUESDAY BUT IS NOT BETTER HEENT Symptoms (Recalled from RN notes): No Resp Symptoms (Recalled from RN notes): Yes Skin Symptoms (Recalled from RN notes): No MS Symptoms (Recalled from RN notes): No Functional Status (Recalled from RN notes): WNL - History of Present Illness Provider Complaint: She has been having ches congestion and a nonproductive cough for the past 8 days. She has finished a z-pack and it has not helped her symptoms. - Related Data Home Medications Medication Instructions Recorded Confirmed Cetirizine HCl 10 mg PO DAILY 03/05
--- NOTE | 2021-10-05 15:30 | XR_ITS ---
PROCEDURE INFORMATION: Exam: XR Chest Exam date and time: 10/05/2021 3:30 PM Age: 66 years old Clinical indication: Cough; Additional info: Cough and congestion TECHNIQUE: Imaging protocol: XR of the chest. Views: 2 views. COMPARISON: CR XR CHEST 2V 04/04/2021 1:52 PM FINDINGS: Lungs: Bilateral hyperinflation is present. Atelectatic changes noted within both lung bases. Pleural spaces: Unremarkable. No pleural effusion. No pneumothorax. Heart/Mediastinum: Unremarkable. No cardiomegaly. Bones/joints: Unremarkable. IMPRESSION: 1. Bilateral hyperinflation is present. 2. Atelectatic changes noted within both lung bases.
[2021-10-05 15:59] VITALS: BP 138/69; PULSE 95; RESP 18; TEMP 37.1; O2SAT 95
== END 2021-10-05 16:35 | disposition home or self-care (01) ==
LOC: UTC 13:19
PROVIDERS: Emergency Provider Nurse Practitioner Family; PCP Emergency Medicine
DX: J20.9 Acute bronchitis, unspecified (principal); I10 Essential (primary) hypertension; E78.5 Hyperlipidemia, unspecified; I25.2 Old myocardial infarction; F41.9 Anxiety disorder, unspecified; F17.210 Nicotine dependence, cigarettes, uncomplicated
CPT/HCPCS: 71046; 87581; 87632; 87798; 99213; C9803; G0463; U0003; U0005

== ENCOUNTER → 2021-11-09 08:14 | Outpatient (CLI) | payer MEDICARE, SELFPAY ==
[2021-11-09 09:18] LABS: Basophils # 0.2 K/mm3 (0-0.2); Eosinophils # 0.2 K/mm3 (0.0-0.4); Eosinophils % 2.7 % (0.1-12.0); Hematocrit 48.8 % (37.0-47.0); Hemoglobin 16.5 g/dL (12.2-16.2); Lymphocytes # 3.2 K/mm3 (0.7-4.5); Lymphocytes % 40.2 % (10-50); Mean Corpuscular HGB Conc 33.8 g/dL (31.8-35.4); Mean Corpuscular Hemoglobin 31.7 pg (27.0-31.2); Mean Corpuscular Volume 93.6 fl (81-99); Mean Platelet Volume 8.4 fl (7.4-10.4); Monocytes # 0.6 K/mm3 (0.1-1.0); Monocytes % 7.3 % (1.7-9.3); Neutrophils # 3.7 K/mm3 (1.8-7.8); Neutrophils % 46.8 % (37.0-80.0); Platelet Count 275 K/mm3 (142-424); Red Blood Count 5.22 M/mm3 (4.20-5.40); Red Cell Distribution Width 13.7 % (11.5-17.5); White Blood Count 7.9 K/mm3 (4.8-10.8)
[2021-11-09 10:01] LABS: Alanine Aminotransferase 45 U/L (12-78); Albumin Level 4.6 g/dl (3.5-5.0); Alkaline Phosphatase 167 U/L (38-126); Aspartate Amino Transferase 35 U/L (14-36); Bilirubin,Direct 0.1 mg/dl (0.0-0.4); Bilirubin,Indirect 0.3 mg/dL (0.0-0.9); Bilirubin,Total 0.4 mg/dl (0.2-1.3); Bilirubin,Unconjugated 0.3 mg/dL (0.0-1.1); Blood Urea Nitrogen 12 mg/dl (7-17); Calcium 9.3 mg/dl (8.4-10.2); Carbon Dioxide 28 mmol/L (22.0-30.0); Chloride 107 mmol/L (98-107); Chol/HDL Ratio 5.8 (1-3.5); Cholesterol 292 mg/dl (140-200); Estimated Glomerular Filt Rate 72 ml/min (>60); GFR (African American) 87 ML/MIN (>60); Glucose 105 mg/dl (74-100); HDL Cholesterol 50 mg/dl (40-60); Sodium 143 mmol/L (136-145); Total Protein,Serum 6.8 g/dl (6.3-8.2); Triglycerides 318 mg/dl (30-150); VLDL Cholesterol 64 mg/dL (0-40)
[2021-11-09 10:12] LABS: Direct LDL Cholesterol 170.93 mg/dL (100-129)
[2021-11-09 10:19] LABS: Free T4 (Free Thyroxine) 0.94 ng/dl (0.78-2.19)
[2021-11-09 10:33] LABS: Thyroid Stimulating Hormone 2.33 uIU/mL (0.465-4.68)
== END ==
PROVIDERS: Visit Provider Internal Medicine
DX: E78.5 Hyperlipidemia, unspecified (principal); I11.9 Hypertensive heart disease without heart failure; I25.10 Atherosclerotic heart disease of native coronary artery without angina pectoris; R06.00 Dyspnea, unspecified; R94.31 Abnormal electrocardiogram [ECG] [EKG]; Z72.0 Tobacco use; Z95.5 Presence of coronary angioplasty implant and graft; I63.9 Cerebral infarction, unspecified; E11.9 Type 2 diabetes mellitus without complications
CPT/HCPCS: 36415; 80048; 80061; 80076; 84439; 84443; 85025

== ENCOUNTER 2021-11-26 09:25 | Emergency (ER) | payer MEDICARE, SELFPAY ==
[2021-11-26 10:10] VITALS: BP 137/57; PULSE 92; RESP 16; TEMP 36.9; O2SAT 97; BMI 33.6
--- NOTE | 2021-11-26 10:31 | HMH.EDUTC ---
[facility] [place] Clinical Impression: Sinusitis Qualifiers: Sinusitis location: unspecified location Chronicity: unspecified Qualified Code(s): J32.9 - Chronic sinusitis, unspecified Acute bronchitis Qualifiers: Bronchitis organism: unspecified organism Qualified Code(s): J20.9 - Acute bronchitis, unspecified Disposition: Home, Self-Care Condition on Discharge: Good Instructions: Sinusitis, DI for Sinusitis, DI for Acute Bronchitis, Levofloxacin Additional Instructions: ? Start antibiotic today. Be sure to complete entire prescription even if feeling better ? Monitor temp. Tylenol every 4 hours as needed and / or ibuprofen every 6 hours as needed ( As long as your primary care physician has told you that it ok to take both. For fever/aches/pains ER if no less than 101 despite Tylenol or Motrin ? Humidifier/vaporizer or hot steamy shower ? Inhaler every 4-6 hours as needed like we discussed. If unsure how to use it, ask pharmacist to demonstrate how. Should help open airways and improve cough, wheezing, and shortness of breath ? Mucinex during the day for your cough and cough suppressant only at night. Be sure to drink lots of water. Insurance may not cover a prescriptions for mucinex. Might be cheaper to get 400mg tablets and take 2 tablet in the morning, mid-day and evening with lots of water. *Tessalon Perles will not cause drowsiness but use at bedtime to help stop cough so that you may get some rest. *Start steroid today. Helps with inflammation therefore, cough and wheezing. Follow directions on the package. Reviewed side effects. Patient reports taking them before. Follow up IMMEDIATELY for new or worsening of symptoms OR no noticeable improvement over the next 48-72 hours. 911 immediately for any life threatening symptoms such as chest pain or difficulty breathing Prescriptions: Albuterol Sulfate [Proventil-HFA 90mcg/puff Inh] 1 - 2 puffs IH Q4HP PRN #1 each PRN Reason: Shortness Of Breath Transmission Status: Received by [facility] Benzonatate [Benzonatate 100mg cap] 100 mg PO Q8HP PRN #15 cap PRN Reason: Cough Transmission Status: Pending to [facility]91 levoFLOXacin [Levaquin 500mg tab] 500 mg PO DAILY 7 Days #7 tab [facility]: [facility] predniSONE [Prednisone 20mg Tab] 20 mg PO BID 5 Days #10 tab [facility] Referrals: Asaf Lubin MD [Primary Care Provider] - As needed Time of Disposition: 10:40 Medical Decision Making - Barber Inquiry Pt receiving controlled substance: No Barber was queried for this patient: No Vital Signs: 11/26/21 10:10 11/26/21 10:52 Temperature 98.4 F 98.4 F Temperature Source Oral Pulse Rate 92 H Pulse Rate [Right Brachial] 92 H Respiratory Rate 16 16 Blood Pressure 137/57 L Blood Pressure [Right Arm] 137/57 L Blood Pressure Mean [Right Arm] 83 Blood Pressure Source [Right Arm] Automatic Cuff Blood Pressure Position [Right Arm] Sitting 02 Sat by Pulse Oximetry 97 Oxygen Delivery Method Room Air Medical Decision Narrative: medication discussed with pharmacy [facility] [place] - General Stated complaint: possible bronchitis Time Seen by Provider: 11/26/21 10:31 Mode of Arrival: Ambulatory Source of Information: Patient Limitations: No Limitations Description of Symptoms (Recalled from Triage Doc. by RN): PATIENT C/O POSSIBLE BRONCHITIS. SHE STATES SHE HAS RECENTLY BEEN TREATED FOR SAME THING. SHE REPORTS TAKING MUCINEX DAILY HEENT Symptoms (Recalled from RN notes): No Resp Symptoms (Recalled from RN notes): Yes Skin Symptoms (Recalled from RN notes): No MS Symptoms (Recalled from RN notes): No Functional Status (Recalled from RN notes): WNL - History of Present Illness Provider Complaint: Patient states that she has been having bronchitis for close to a month States that she took a zpack and it got better but then came back States that she has been hav
[2021-11-26 10:52] VITALS: BP 137/57; PULSE 92; RESP 16; TEMP 36.9; O2SAT 97
== END 2021-11-26 10:57 | disposition home or self-care (01) ==
PROVIDERS: Emergency Provider Nurse Practitioner; PCP Emergency Medicine
DX: J32.9 Chronic sinusitis, unspecified (principal); J20.9 Acute bronchitis, unspecified; I10 Essential (primary) hypertension; E78.5 Hyperlipidemia, unspecified; F41.9 Anxiety disorder, unspecified; F17.210 Nicotine dependence, cigarettes, uncomplicated
CPT/HCPCS: 99212; G0463

== ENCOUNTER 2021-12-15 10:25 | Emergency (ER) | payer MEDICARE, SELFPAY ==
[2021-12-15 10:41] VITALS: BP 183/80; PULSE 93; RESP 22; TEMP 36.8; O2SAT 95; BMI 31.6
--- NOTE | 2021-12-15 10:56 | HMH.EDUTC ---
[facility] [place] Clinical Impression: Sinusitis Qualifiers: Sinusitis location: unspecified location Chronicity: unspecified Qualified Code(s): J32.9 - Chronic sinusitis, unspecified Disposition: Home, Self-Care Condition on Discharge: Good Instructions: Sinusitis Additional Instructions: *Monitor Temp, Over the counter Motrin or Tylenol as directed/as needed Tylenol every 4 hours and Motrin every 6 hours (as long as your family doctor has told you that you can take it) for fever or pain. and straight to ER if unable to lower temp less than 101.0 after medication given *Warm salt water gargles may help to soothe the throat *Throat Lozenges *Warm fluids like tea with honey may help to soothe the throat *Sleep elevated *Humidifier/Vaporizer Take medication as prescribed Return if needed Use inhaler and nebulizer as prescribed Follow up IMMEDIATELY for new or worsening symptoms or no Noticeable improvement over the next 48-72 hours. 911 for difficulty breathing or swallowing Prescriptions: Doxycycline Monohydrate [Doxycycline Scurry 100mg Tab] 100 mg PO BID 10 Days #20 tab Transmission Status: Pending to [facility] 591 predniSONE [Prednisone 20mg Tab] 20 mg PO BID 5 Days #10 tab Transmission Status: Pending to [facility]91 Promethazine/Dextromethorphan [Promethazine-Dm Syrup] 2.5 - 5 ml PO Q6H PRN #120 ml PRN Reason: Cough Transmission Status: Pending to [facility] 591 Referrals: Asaf Lubin MD [Primary Care Provider] - As needed Time of Disposition: 11:09 Medical Decision Making - Barber Inquiry Pt receiving controlled substance: No Barber was queried for this patient: No Vital Signs: 12/15/21 10:41 Temperature 98.3 F Temperature Source Oral Pulse Rate [Left Brachial] 93 H Respiratory Rate 22 Blood Pressure [Left Arm] 183/80 H Blood Pressure Mean [Left Arm] 114 Blood Pressure Source [Left Arm] Automatic Cuff Blood Pressure Position [Left Arm] Sitting 02 Sat by Pulse Oximetry 95 Oxygen Delivery Method Room Air [facility] [place] - General Stated complaint: cough, congestion Time Seen by Provider: 12/15/21 10:56 Mode of Arrival: Ambulatory Source of Information: Patient Limitations: No Limitations Description of Symptoms (Recalled from Triage Doc. by RN): PATIENT C/O SINUS PRESSURE, CONGESTION, HEADACHE, AND PRODUCTIVE COUGH WITH CLOUDY/YELLOW SPUTUM HEENT Symptoms (Recalled from RN notes): Yes Resp Symptoms (Recalled from RN notes): Yes Skin Symptoms (Recalled from RN notes): No MS Symptoms (Recalled from RN notes): No Functional Status (Recalled from RN notes): WNL - History of Present Illness Provider Complaint: Patient states that she has been having sinus pain and pressure along with drainage in the back of her throat that she is coughing up States that she is afraid it is going to move into her chest and get worse States that she has been fighting this sinus infection for a couple of months so she came in again to get checked when for the last couple of weeks she has been having pain behind her eyes, headache and pressure - Related Data Home Medications Medication Instructions Recorded Confirmed Cetirizine HCl 10 mg PO DAILY 03/05/19 11/10/21 Previous Rx's Medication Instructions Recorded nitroglycerin 0.4 mg sublingual 0.4 mg SUBLINGUAL Q5M PRN #25 tab 10/04/17 tablet aspirin 81 mg tablet,delayed 81 mg PO DAILY #30 tab 09/01/20 release citalopram 40 mg tablet 40 mg PO DAILY #90 tab 11/05/20 montelukast 10 mg tablet See Rx Instructions .ROUTE 01/07/21 .COMPLEX #90 tab Albuterol Sulfate [Proventil Hfa] 6.7 gm IH Q4-6H PRN #1 each 09/27/21 alirocumab 150 mg/mL subcutaneous 150 mg SQ Q14D #2 ml 11/10/21 pen injector atorvastatin 80 mg tablet See Rx Instructions .ROUTE 11/10/21 .COMPLEX #90 tab clopidogrel 75 mg tablet 75 mg PO DAILY #90 tab 11/10/21 diltiazem HCl 240 mg 240 mg PO DAILY #30 cap 11/10/21 capsule,extended release 24 hr
[2021-12-15 11:15] VITALS: BP 183/80; PULSE 93; RESP 22; TEMP 36.8; O2SAT 95
== END 2021-12-15 11:23 | disposition home or self-care (01) ==
PROVIDERS: Emergency Provider Nurse Practitioner; PCP Emergency Medicine
DX: J32.9 Chronic sinusitis, unspecified (principal); Z88.0 Allergy status to penicillin
CPT/HCPCS: 96372; 99212; G0463

== ENCOUNTER 2022-01-25 09:03 | Emergency (ER) | payer MEDICARE, SELFPAY ==
[2022-01-25 09:15] VITALS: BP 149/87; PULSE 101; RESP 18; TEMP 36.9; O2SAT 95; BMI 33.6
--- NOTE | 2022-01-25 09:55 | HMH.EDUTC ---
[facility] – [place] Disposition Clinical Impression: Bronchitis Sinusitis Qualifiers: Sinusitis location: unspecified location Chronicity: unspecified Qualified Code(s): J32.9 - Chronic sinusitis, unspecified Disposition: Home, Self-Care Condition on Discharge: Good Instructions: Sinusitis, Acute Bronchitis, DI for Sinusitis Additional Instructions: ? Start antibiotic today. Be sure to complete entire prescription even if feeling better ? Monitor temp. Tylenol every 4 hours as needed and / or ibuprofen every 6 hours as needed ( As long as your primary care physician has told you that it ok to take both. For fever/aches/pains ER if no less than 101 despite Tylenol or Motrin ? Humidifier/vaporizer or hot steamy shower ? Inhaler every 4-6 hours as needed like we discussed. If unsure how to use it, ask pharmacist to demonstrate how. Should help open airways and improve cough, wheezing, and shortness of breath ? Mucinex during the day for your cough and Congestion. Be sure to drink lots of water. *Start oral steroid tomorrow. Helps with inflammation therefore, cough and wheezing. Follow directions on the package. Reviewed side effects. Patient reports taking them before. Follow up IMMEDIATELY for new or worsening of symptoms OR no noticeable improvement over the next 48-72 hours. 911 immediately for any life threatening symptoms such as chest pain or difficulty breathing Prescriptions: guaiFENesin [Mucinex 600mg tablet] 1 - 2 tab PO Q12HP PRN #20 tab PRN Reason: Congestion Transmission Status: Received by [facility] predniSONE [Prednisone 20mg Tab] 20 mg PO BID 5 Days #10 tab Transmission Status: Received by [facility] Azithromycin [Z-Christoph 250mg Tab] 250 mg PO DIRECTED #6 tab Transmission Status: Received by [facility] Referrals: Provider,Referral, [Primary Care Provider] - Medical Decision Making - Barber Inquiry Pt receiving controlled substance: No Barber was queried for this patient: No Vital Signs: 01/25/22 09:15 01/25/22 10:05 Temperature 98.5 F 98.5 F Temperature Source Oral Pulse Rate 101 H Pulse Rate [Right Brachial] 101 H Respiratory Rate 18 18 Blood Pressure 149/87 H Blood Pressure [Right Arm] 149/87 H Blood Pressure Mean [Right Arm] 107 Blood Pressure Source [Right Arm] Automatic Cuff Blood Pressure Position [Right Arm] Sitting 02 Sat by Pulse Oximetry 95 Oxygen Delivery Method Room Air Orders (Tests/Meds): ED MEDICATIONS Discontinued Medications Generic Name Dose Route Start Last Admin Trade Name Vandana PRN Reason Stop Dose Admin Methylprednisolone Sodium Succinate 125 mg 01/25/22 09:55 01/25/22 10:05 Methylprednisolone Sod Succ 125mg Vial IM 01/25/22 09:56 125 mg ONCE ONE Administration Medical Decision Narrative: Patient states that she has taken azithromycin and Prednisone in the past without reaction or complications [facility] [place] HPI - General Stated complaint: chest congestion Time Seen by Provider: 01/25/22 09:35 Mode of Arrival: Ambulatory Source of Information: Patient Limitations: No Limitations Description of Symptoms (Recalled from Triage Doc. by RN): PATIENT C/O COUGH AND SINUS PRESSURE X 2 DAYS HEENT Symptoms (Recalled from RN notes): Yes Resp Symptoms (Recalled from RN notes): Yes Skin Symptoms (Recalled from RN notes): No MS Symptoms (Recalled from RN notes): No Functional Status (Recalled from RN notes): WNL - History of Present Illness Provider Complaint: Patient states that she has been fighting a sinus infection for over a month States that it was doing better but now she is starting to have sinus pressure again and feeling like it is trying to move into her chest area States that today she was having the pressure behind her eyes again so she came in to get checked out - Related Data Home Medications Medication Instructions Recorded Confirmed Cetirizine HCl 10 mg PO DAILY 03/05/19 11/10/21 Previous Rx's
[2022-01-25 10:05] VITALS: BP 149/87; PULSE 101; RESP 18; TEMP 36.9; O2SAT 95
== END 2022-01-25 10:19 | disposition home or self-care (01) ==
PROVIDERS: Emergency Provider Nurse Practitioner
DX: J40 Bronchitis, not specified as acute or chronic (principal); J32.9 Chronic sinusitis, unspecified
CPT/HCPCS: 96372; 99212; G0463

== ENCOUNTER 2022-01-27 11:21 | Emergency (ER) | payer MEDICARE, SELFPAY ==
--- NOTE | 2022-01-27 11:30 | HMH.EDUTC ---
[facility] – [place] Disposition Clinical Impression: Exposure to COVID-19 virus Disposition: Home, Self-Care Condition on Discharge: Good Instructions: DI for COVID-19 (Suspected or Confirmed ), Preventing the Spread of Coronavirus Discharge Instructions Additional Instructions: Drink plenty of fluids. Take tylenol for pain or fever. Return if you begin to have difficulty breathing. Follow up with your regular doctor. GO TO THE ER FOR ANY WORSENING SYMPTOMS Quarantine until you know the results of your covid-19 test. If it is positive, the health department should call you and give you further instructions about your length of Quarantine and other things. Notify your school or workplace of your results and follow their instructions regarding return to work/school. Referrals: Asaf Lubin MD [Primary Care Provider] - Time of Disposition: 11:39 Medical Decision Making - Medical Records Medical records reviewed: No: I reviewed the patient's medical records. - Barber Inquiry Pt receiving controlled substance: No Vital Signs: 01/27/22 11:38 01/27/22 11:45 Temperature 98.8 F 98.8 F Temperature Source Oral Pulse Rate 90 Pulse Rate [Left] 90 Respiratory Rate 16 16 Blood Pressure 142/80 H Blood Pressure [Right Arm] 142/80 H Blood Pressure Mean [Right Arm] 100 02 Sat by Pulse Oximetry 96 [facility] [place] HPI - General Stated complaint: wants Covid test Time Seen by Provider: 01/27/22 11:30 - History of Present Illness Provider Complaint: She is here for a covid-19 test after being exposed around 4 days ago. She has some sinus congestion, but she is unsure if this is allergies or something else. She denies any shortness of breath or other complaints. - Related Data Home Medications Medication Instructions Recorded Confirmed Cetirizine HCl 10 mg PO DAILY 03/05/19 11/10/21 Previous Rx's Medication Instructions Recorded nitroglycerin 0.4 mg sublingual 0.4 mg SUBLINGUAL Q5M PRN #25 tab 10/04/17 tablet aspirin 81 mg tablet,delayed 81 mg PO DAILY #30 tab 09/01/20 release citalopram 40 mg tablet 40 mg PO DAILY #90 tab 11/05/20 montelukast 10 mg tablet See Rx Instructions .ROUTE 01/07/21 .COMPLEX #90 tab Albuterol Sulfate [Proventil Hfa] 6.7 gm IH Q4-6H PRN #1 each 09/27/21 alirocumab 150 mg/mL subcutaneous 150 mg SQ Q14D #2 ml 11/10/21 pen injector atorvastatin 80 mg tablet See Rx Instructions .ROUTE 11/10/21 .COMPLEX #90 tab clopidogrel 75 mg tablet 75 mg PO DAILY #90 tab 11/10/21 diltiazem HCl 240 mg 240 mg PO DAILY #30 cap 11/10/21 capsule,extended release 24 hr Albuterol Sulfate [Proventil-HFA 1 - 2 puffs IH Q4HP PRN #1 each 11/26/21 90mcg/puff Inh] Benzonatate [Benzonatate 100mg 100 mg PO Q8HP PRN #15 cap 11/26/21 cap] levoFLOXacin [Levaquin 500mg 500 mg PO DAILY 7 Days #7 tab 11/26/21 tab] predniSONE [Prednisone 20mg 20 mg PO BID 5 Days #10 tab 11/26/21 Tab] Doxycycline Monohydrate 100 mg PO BID 10 Days #20 tab 12/15/21 [Doxycycline [place] 100mg Tab] Promethazine/Dextromethorphan 2.5 - 5 ml PO Q6H PRN #120 ml 12/15/21 [Promethazine-Dm Syrup] predniSONE [Prednisone 20mg 20 mg PO BID 5 Days #10 tab 12/15/21 Tab] Azithromycin [Z-Christoph 250mg Tab] 250 mg PO DIRECTED #6 tab 01/25/22 guaiFENesin [Mucinex 600mg tablet] 1 - 2 tab PO Q12HP PRN #20 tab 01/25/22 predniSONE [Prednisone 20mg 20 mg PO BID 5 Days #10 tab 01/25/22 Tab] Allergies Allergy/AdvReac Type Severity Reaction Status Date / Time Penicillins [PENICILLINS] Allergy Mild Verified 01/27/22 11:41 bee venom protein (honey bee) Allergy Verified 01/27/22 11:41 [facility] History - Hepatitis A Screen Attestation statement:: This patient has been screened for Hepatitis A risk factors. I have reviewed the patient's past medical history: Yes Medical History: Reports:: Anxiety, Coronary Artery Disease, Hyperlipidemia, Hypertension, Myocardial Infarction Denies:: Bel
[2022-01-27 11:38] VITALS: BP 142/80; PULSE 90; RESP 16; TEMP 37.1; O2SAT 96; BMI 33.6
[2022-01-27 11:45] VITALS: BP 142/80; PULSE 90; RESP 16; TEMP 37.1
== END 2022-01-27 11:45 | disposition home or self-care (01) ==
PROVIDERS: Emergency Provider Nurse Practitioner Family; PCP Emergency Medicine
DX: U07.1 COVID-19 (principal); F17.210 Nicotine dependence, cigarettes, uncomplicated; I10 Essential (primary) hypertension; I25.10 Atherosclerotic heart disease of native coronary artery without angina pectoris; E78.5 Hyperlipidemia, unspecified; I25.2 Old myocardial infarction
CPT/HCPCS: 99212; C9803; G0463; U0003; U0005

== ENCOUNTER 2022-03-20 13:53 | Emergency (ER) | payer MEDICARE, SELFPAY ==
[2022-03-20 15:11] VITALS: BP 149/61; PULSE 98; RESP 15; TEMP 36.9; O2SAT 96; BMI 33.6
--- NOTE | 2022-03-20 15:31 | EXP.UTC ---
Discharge Plan Disposition Patient Disposition: Home, Self-Care Condition: Good Prescriptions Prescriptions: New cefdinir 300 mg capsule 300 mg PO BID 20 Days Qty: 20 0RF prednisone [prednisone] 20 mg tablet 20 mg PO BID 5 Days Qty: 10 0RF cefdinir [cefdinir] 300 mg capsule 300 mg PO BID 10 Days Qty: 20 0RF No Action aspirin 81 mg tablet,delayed release (DR/EC) 81 mg PO DAILY Qty: 30 5RF Praluent Pen 150 mg/mL pen injector 150 mg SQ Q14D Qty: 2 5RF Rx Instructions: inject into abdomen, thigh, or upper arm (deltoid muscle); rotate sites atorvastatin 80 mg tablet See Rx Instructions .ROUTE .COMPLEX Qty: 90 3RF Dose Instruction: TAKE 1 TABLET BY MOUTH ONCE DAILY FOR CHOLESTEROL Rx Instructions: TAKE 1 TABLET BY MOUTH ONCE DAILY FOR CHOLESTEROL clopidogrel 75 mg tablet 75 mg PO DAILY Qty: 90 4RF diltiazem HCl 240 mg capsule,extended release 24hr 240 mg PO DAILY Qty: 30 5RF nitroglycerin 0.4 mg tablet, sublingual 0.4 mg SUBLINGUAL Q5M PRN (Reason: angina) Qty: 25 0RF citalopram 40 mg tablet 40 mg PO DAILY Qty: 90 0RF Rx Instructions: patient needs to make a follow up before anymore refills montelukast 10 mg tablet See Rx Instructions .ROUTE .COMPLEX Qty: 90 3RF Dose Instruction: TAKE 1 TABLET BY MOUTH ONCE DAILY FOR ALLERGIES Rx Instructions: TAKE 1 TABLET BY MOUTH ONCE DAILY FOR ALLERGIES cetirizine 10 MG tablet 10 mg PO DAILY albuterol sulfate 6.7 GM HFA aerosol inhaler 6.7 gm IH Q4-6H PRN (Reason: Wheezing) Qty: 1 0RF promethazine-DM 120 ML syrup 2.5 - 5 ml PO Q6H PRN (Reason: Cough) Qty: 120 0RF prednisone 20 MG tablet 20 mg PO BID 5 Days Qty: 10 0RF doxycycline monohydrate 100 MG tablet 100 mg PO BID 10 Days Qty: 20 0RF azithromycin 250 MG tablet 250 mg PO DIRECTED Qty: 6 0RF Rx Instructions: Take two (2) tablets on day #1, then one (1) tablet day #2 thru #5 prednisone 20 MG tablet 20 mg PO BID 5 Days Qty: 10 0RF guaifenesin 600 MG tablet extended release 12hr 1 - 2 tab PO Q12HP PRN (Reason: Congestion) Qty: 20 0RF prednisone 20 MG tablet 20 mg PO BID 5 Days Qty: 10 0RF levofloxacin 500 MG tablet 500 mg PO DAILY 7 Days Qty: 7 0RF albuterol sulfate 200 PUFFS HFA aerosol inhaler 1 - 2 puffs IH Q4HP PRN (Reason: Shortness Of Breath) Qty: 1 0RF benzonatate 100 MG capsule 100 mg PO Q8HP PRN (Reason: Cough) Qty: 15 0RF Referrals Follow up/Referrals: Asaf Lubin MD [Primary Care Provider] - See instructions Clinical Impressions Clinical Impression: Right otitis media Instructions Patient Instructions: DI for Otitis Media (Middle Ear Infection)-Child Discharge ED Provider[place] Ellie Mall[place] [facility] [place] General Stated complaint: lung congestion,cough Mode of Arrival: Ambulatory Source of Information: Patient Limitations: No Limitations Time Seen by Provider: 03/20/22 15:31 Description of Symptoms (Recalled from Triage Doc. by RN): pt comes in with know under right ear. pt states she found it this am. HEENT Symptoms (Recalled from RN notes): Yes Resp Symptoms (Recalled from RN notes): No Skin Symptoms (Recalled from RN notes): No MS Symptoms (Recalled from RN notes): No Functional Status (Recalled from RN notes): n/a History of Present Illness Provider Complaint: Cough, congestion, sinus pain and pressure, ear pain, sore throat off and on for months. States has been seen at [facility] several times but hasn't gotten better. No fever. Noticed knot under right ear this morning which worried her. Onset (ago): day(s) Location: head, face and chest Relieving factors: none Exacerbating factors: none Treatments prior to arrival: none Related Data Home Medications Medication Instructions Recorded Confirmed cetirizine 10 mg tablet 10 mg PO DAILY allergies 03/05/19 11/10/21 Previous Rx's Medication Instructions Recorded n
[2022-03-20 15:54] VITALS: BP 149/61; PULSE 98; RESP 15; TEMP 36.9
== END 2022-03-20 15:56 | disposition home or self-care (01) ==
PROVIDERS: Emergency Provider Physician Assistant; PCP Emergency Medicine
DX: H66.91 Otitis media, unspecified, right ear (principal)
CPT/HCPCS: 99212; G0463

== ENCOUNTER 2022-05-12 12:39 | Emergency (ER) | payer MEDICARE, SELFPAY ==
[2022-05-12 12:56] VITALS: BP 150/91; PULSE 93; RESP 19; TEMP 36.8; O2SAT 96; BMI 33.6
--- NOTE | 2022-05-12 13:43 | EXP.UTC ---
Discharge Plan Disposition Patient Disposition: Home, Self-Care Condition: Good Prescriptions Prescriptions: New cefdinir 300 mg capsule 300 mg PO BID 10 Days Qty: 20 0RF prednisone 20 mg tablet 20 mg PO BID 5 Days Qty: 10 0RF albuterol sulfate [Proventil HFA] 90 mcg/actuation HFA aerosol inhaler 1 inh inhalation Q6H PRN (Reason: shortness of breath or wheezing) Qty: 8.5 0RF No Action aspirin 81 mg tablet,delayed release (DR/EC) 81 mg PO DAILY Qty: 30 5RF Praluent Pen 150 mg/mL pen injector 150 mg SQ Q14D Qty: 2 5RF Rx Instructions: inject into abdomen, thigh, or upper arm (deltoid muscle); rotate sites atorvastatin 80 mg tablet See Rx Instructions .ROUTE .COMPLEX Qty: 90 3RF Dose Instruction: TAKE 1 TABLET BY MOUTH ONCE DAILY FOR CHOLESTEROL Rx Instructions: TAKE 1 TABLET BY MOUTH ONCE DAILY FOR CHOLESTEROL clopidogrel 75 mg tablet 75 mg PO DAILY Qty: 90 4RF diltiazem HCl 240 mg capsule,extended release 24hr 240 mg PO DAILY Qty: 30 5RF nitroglycerin 0.4 mg tablet, sublingual 0.4 mg SUBLINGUAL Q5M PRN (Reason: angina) Qty: 25 0RF citalopram 40 mg tablet 40 mg PO DAILY Qty: 90 0RF Rx Instructions: patient needs to make a follow up before anymore refills montelukast 10 mg tablet See Rx Instructions .ROUTE .COMPLEX Qty: 90 3RF Dose Instruction: TAKE 1 TABLET BY MOUTH ONCE DAILY FOR ALLERGIES Rx Instructions: TAKE 1 TABLET BY MOUTH ONCE DAILY FOR ALLERGIES cetirizine 10 MG tablet 10 mg PO DAILY albuterol sulfate 6.7 GM HFA aerosol inhaler 6.7 gm IH Q4-6H PRN (Reason: Wheezing) Qty: 1 0RF promethazine-DM 120 ML syrup 2.5 - 5 ml PO Q6H PRN (Reason: Cough) Qty: 120 0RF prednisone 20 MG tablet 20 mg PO BID 5 Days Qty: 10 0RF doxycycline monohydrate 100 MG tablet 100 mg PO BID 10 Days Qty: 20 0RF azithromycin 250 MG tablet 250 mg PO DIRECTED Qty: 6 0RF Rx Instructions: Take two (2) tablets on day #1, then one (1) tablet day #2 thru #5 prednisone 20 MG tablet 20 mg PO BID 5 Days Qty: 10 0RF guaifenesin 600 MG tablet extended release 12hr 1 - 2 tab PO Q12HP PRN (Reason: Congestion) Qty: 20 0RF prednisone 20 MG tablet 20 mg PO BID 5 Days Qty: 10 0RF levofloxacin 500 MG tablet 500 mg PO DAILY 7 Days Qty: 7 0RF albuterol sulfate 200 PUFFS HFA aerosol inhaler 1 - 2 puffs IH Q4HP PRN (Reason: Shortness Of Breath) Qty: 1 0RF benzonatate 100 MG capsule 100 mg PO Q8HP PRN (Reason: Cough) Qty: 15 0RF cefdinir 300 mg capsule 300 mg PO BID 20 Days Qty: 20 0RF prednisone [prednisone] 20 mg tablet 20 mg PO BID 5 Days Qty: 10 0RF cefdinir [cefdinir] 300 mg capsule 300 mg PO BID 10 Days Qty: 20 0RF Referrals Follow up/Referrals: Asaf Lubin MD [Primary Care Provider] - See instructions Activity Restrictions/Add. Instructions Additional Instructions/Restrictions: *Monitor Temp, Over the counter Motrin or Tylenol as directed/as needed Tylenol every 4 hours and Motrin every 6 hours (as long as your family doctor has told you that you can take it) for fever or pain. and straight to ER if unable to lower temp less than 101.0 after medication given *Warm salt water gargles may help to soothe the throat *Throat Lozenges? *Warm fluids like tea with honey may help to soothe the throat? *Sleep elevated *Humidifier/Vaporizer Take medication as prescribed Follow up IMMEDIATELY for new or worsening symptoms or no Noticeable improvement over the next 48-72 hours. 911 for difficulty breathing or swallowing Clinical Impressions Clinical Impression: Otitis media Qualifiers: Otitis media type: unspecified Laterality: right Qualified Code(s): H66.91 - Otitis media, unspecified, right ear Sinusitis Qualifiers: Sinusitis location: unspecified location Chronicity: unspecified Qualified Code(s): J32.9 - Chronic sinusitis, un
[2022-05-12 13:54] VITALS: BP 150/91; PULSE 93; RESP 19; TEMP 36.8; O2SAT 96
== END 2022-05-12 13:57 | disposition home or self-care (01) ==
PROVIDERS: Emergency Provider Nurse Practitioner; PCP Emergency Medicine
DX: H66.91 Otitis media, unspecified, right ear (principal); J32.9 Chronic sinusitis, unspecified
CPT/HCPCS: 99212; G0463

== ENCOUNTER → 2022-06-28 07:34 | Outpatient (CLI) | payer MEDICARE, SELFPAY ==
--- NOTE | 2022-06-28 07:44 | MM_ITS ---
PROCEDURE INFORMATION: Exam: MG Bilateral Screening 3D Mammography Exam date and time: 06/28/2022 7:50 AM Age: 67 years old Clinical indication: Screening examination TECHNIQUE: Imaging protocol: Bilateral Screening tomosynthesis and 2D mammography including computer-aided detection (CAD) when performed. COMPARISON: 1. MG SCBI MM Dig screening mamm BI w/CAD 08/23/2018 8:53 AM 2. MG DMSB DIG MAMM-SCREEN ABBE W/CAD 04/27/2017 8:16 AM FINDINGS: MAMMOGRAPHY: Breast composition: The breasts are almost entirely fatty. Mass: None. Architectural distortion: None. Calcifications: No suspicious calcifications. Asymmetric density: None. Skin thickening: None. Axillary adenopathy: None. IMPRESSION: No mammographic evidence of malignancy. Annual screening is recommended unless otherwise clinically indicated. ASSESSMENT: BI-RADS Category 1: Negative
--- NOTE | 2022-06-28 07:46 | CT_ITS ---
FINAL REPORT CLINICAL HISTORY: H/O NICOTINE DEPENDENCE smoker 1 pack per day x 30 years FINDINGS: Low-Dose Chest CT Axial images were obtained from the lung apex to the mid abdomen by computed tomography. Low-dose protocol was utilized. CTDI vol (mGy): 2.90 DLP (mGy-cm): 99.25 There is no axillary adenopathy. There is no hilar or mediastinal adenopathy. The heart is proper size. There is no pericardial or pleural effusion. Lung window images demonstrate several less than 5 mm left lower lobe nodules. There is an anterior right lower lobe nodule measuring 4 mm well seen on image 40. There is a calcified granuloma in the right lower lobe. Limited images of the upper abdomen are unremarkable. There is a presumed sebaceous cyst in the posterior midline of the back measuring 24 mm. IMPRESSION: Several less than 5 mm left lower lobe nodules and 4 mm right lower lobe nodule. Lung RADS category 2. Recommend 12 month follow-up low-dose chest CT. Reviewed, Interpreted and Dictated by Ruslan Her III, MD Transcribed by Sari Haile Authenticated and [facility]
--- NOTE | 2022-06-28 07:46 | XR_ITS ---
FINAL REPORT TECHNIQUE: Bone densitometry calculations of the lumbar spine and left hip were obtained. CLINICAL HISTORY: . post menopausal screening FINDINGS: DEXA BONE DENSITY AXIAL SKELETON Using L1-4, the bone mineral density of the spine is 0.947 g/cm2, corresponding to T-score of -0.9. Using the left hip, the bone mineral density of the femoral neck is 0.647 g/cm2, corresponding to a T-score of -1.6. NOTE: T-score: Standard deviation compared with peak bone mass of young adult mean. *Following the recommendations of the International Society of Bone densitometry, classification of hip BMD is based on the lower of two T-scores; total hip or femoral neck. IMPRESSION: Diminished bone mineral density of the lumbar spine and left hip consistent with osteopenia. FRAX 10 year fracture risk is 1.9% for a hip fracture and 15% for a major osteoporotic fracture. Reviewed, Interpreted and Dictated by Ruslan Her III, MD Transcribed by Sari Haile Authenticated and [facility]
== END ==
PROVIDERS: PCP Emergency Medicine; Visit Provider Family Medicine
DX: Z12.31 Encounter for screening mammogram for malignant neoplasm of breast (principal); Z78.0 Asymptomatic menopausal state; Z87.891 Personal history of nicotine dependence; Z12.2 Encounter for screening for malignant neoplasm of respiratory organs
CPT/HCPCS: 71271; 77063; 77067; 77080

== ENCOUNTER 2022-07-27 11:57 | Emergency (ER) | payer MEDICARE, SELFPAY ==
[2022-07-27 12:07] VITALS: BP 146/80; PULSE 91; RESP 19; TEMP 36.7; O2SAT 97; BMI 35.3
--- NOTE | 2022-07-27 12:15 | EXP.UTC ---
Discharge Plan Disposition Patient Disposition: Home, Self-Care Condition: Good Prescriptions Prescriptions: New prednisone [prednisone] 20 mg tablet 20 mg PO BID 5 Days Qty: 10 0RF guaifenesin [Mucinex] 600 mg tablet extended release 12hr 600 mg PO BID PRN (Reason: cough) Qty: 30 0RF levofloxacin 750 mg tablet 750 mg PO DAILY 7 Days Qty: 7 0RF promethazine-DM 6.25-15 mg/5 mL syrup 5 ml PO Q6H PRN (Reason: cough) Qty: 118 0RF No Action aspirin 81 mg tablet,delayed release (DR/EC) 81 mg PO DAILY Qty: 30 5RF atorvastatin 80 mg tablet See Rx Instructions .ROUTE .COMPLEX Qty: 90 3RF Dose Instruction: TAKE 1 TABLET BY MOUTH ONCE DAILY FOR CHOLESTEROL Rx Instructions: TAKE 1 TABLET BY MOUTH ONCE DAILY FOR CHOLESTEROL clopidogrel 75 mg tablet 75 mg PO DAILY Qty: 90 4RF Praluent Pen 150 mg/mL pen injector 150 mg SQ Q14D Qty: 2 5RF Rx Instructions: inject into abdomen, thigh, or upper arm (deltoid muscle); rotate sites nitroglycerin 0.4 mg tablet, sublingual 0.4 mg SUBLINGUAL Q5M PRN (Reason: angina) Qty: 25 0RF diltiazem HCl 240 mg capsule,extended release 24hr 240 mg PO DAILY Qty: 90 2RF cetirizine 10 MG tablet 10 mg PO DAILY albuterol sulfate [Proventil HFA] 90 mcg/actuation HFA aerosol inhaler 1 inh inhalation Q6H PRN (Reason: shortness of breath or wheezing) Qty: 8.5 0RF Referrals Follow up/Referrals: Scott Kendall MD [Primary Care Provider] - See instructions Activity Restrictions/Add. Instructions Additional Instructions/Restrictions: Start antibiotic today. Be sure to complete entire prescription even if feeling better Monitor temp. Tylenol every 4 hours as needed and / or ibuprofen every 6 hours as needed ( As long as your primary care physician has told you that it ok to take both. For fever/aches/pains ER if no less than 101 despite Tylenol or Motrin Humidifier/vaporizer or hot steamy shower Inhaler every 4-6 hours as needed like we discussed. If unsure how to use it, ask pharmacist to demonstrate how. Should help open airways and improve cough, wheezing, and shortness of breath Mucinex for your cough and cough suppressant only at night. Be sure to drink lots of water. *Promethazine DM cough syrup will cause drowsiness. Use only at night. No driving, operating machinery or caring for small children after taking it *Start steroid today. Helps with inflammation therefore, cough and wheezing. Follow directions on the package. Reviewed side effects. Patient reports taking them before. Follow up IMMEDIATELY for new or worsening of symptoms OR no noticeable improvement over the next 48-72 hours. 911 immediately for any life threatening symptoms such as chest pain or difficulty breathing Clinical Impressions Clinical Impression: Bronchitis, Sinusitis Instructions Patient Instructions: DI for Sinusitis, Sinusitis, Acute Bronchitis Discharge ED Provider: Taylor Whitfield [facility] HPI General Stated complaint: Hurts to breath Mode of Arrival: Ambulatory Source of Information: Spouse Time Seen by Provider: 07/27/22 12:15 Description of Symptoms (Recalled from Triage Doc. by RN): bronchitis, congestion, productive cough, hurts when she takes a deep breath HEENT Symptoms (Recalled from RN notes): Yes Resp Symptoms (Recalled from RN notes): Yes Skin Symptoms (Recalled from RN notes): No MS Symptoms (Recalled from RN notes): No Functional Status (Recalled from RN notes): n/a History of Present Illness Provider Complaint: Patient states that she has been fighting bronchitis for over a month States that she has been having sinus congestion and pressure and feels like it is trying to move into her chest States she is coughing up the drainage at times in her throat and it hurts and arndt when she coughs hard States she wanted to come in and get checked worried that it may turn into p
[2022-07-27 12:49] VITALS: BP 146/80; PULSE 91; RESP 19; TEMP 36.7; O2SAT 97
== END 2022-07-27 12:44 | disposition home or self-care (01) ==
PROVIDERS: Emergency Provider Nurse Practitioner; PCP Family Medicine
DX: J40 Bronchitis, not specified as acute or chronic (principal); J32.9 Chronic sinusitis, unspecified
CPT/HCPCS: 99212; 99213; C9803; G0463; U0003; U0005

== ENCOUNTER 2022-12-22 10:22 | Emergency (ER) | payer MEDICARE, SELFPAY ==
[2022-12-22 10:23] VITALS: BP 151/68; PULSE 92; RESP 18; TEMP 36.7; O2SAT 97; BMI 32.9
--- NOTE | 2022-12-22 10:50 | EXP.UTC ---
Discharge Plan Disposition Patient Disposition: Home, Self-Care Condition: Good Prescriptions Prescriptions: New albuterol sulfate [Proventil HFA] 90 mcg/actuation HFA aerosol inhaler 1 - 2 inh inhalation Q6H PRN (Reason: shortness of breath or wheezing) Qty: 8.5 0RF azithromycin [Zithromax Z-Christoph] 250 mg tablet See Rx Instructions .ROUTE .COMPLEX 5 Days Qty: 6 0RF Rx Instructions: For 250 mg dose pack: take 500 mg today (day 1), then 250 mg for 4 days (days 2-5) prednisone [prednisone] 20 mg tablet 20 mg PO BID 5 Days Qty: 10 0RF guaifenesin [Mucinex] 600 mg tablet extended release 12hr 600 - 1,200 mg PO BID PRN (Reason: cough) Qty: 20 0RF No Action aspirin 81 mg tablet,delayed release (DR/EC) 81 mg PO DAILY Qty: 30 5RF atorvastatin 80 mg tablet See Rx Instructions .ROUTE .COMPLEX Qty: 90 3RF Dose Instruction: TAKE 1 TABLET BY MOUTH ONCE DAILY FOR CHOLESTEROL Rx Instructions: TAKE 1 TABLET BY MOUTH ONCE DAILY FOR CHOLESTEROL clopidogrel 75 mg tablet 75 mg PO DAILY Qty: 90 4RF Praluent Pen 150 mg/mL pen injector 150 mg SQ Q14D Qty: 2 5RF Rx Instructions: inject into abdomen, thigh, or upper arm (deltoid muscle); rotate sites nitroglycerin 0.4 mg tablet, sublingual 0.4 mg SUBLINGUAL Q5M PRN (Reason: angina) Qty: 25 0RF diltiazem HCl 240 mg capsule,extended release 24hr 240 mg PO DAILY Qty: 90 2RF cetirizine 10 MG tablet 10 mg PO DAILY albuterol sulfate [Proventil HFA] 90 mcg/actuation HFA aerosol inhaler 1 inh inhalation Q6H PRN (Reason: shortness of breath or wheezing) Qty: 8.5 0RF prednisone [prednisone] 20 mg tablet 20 mg PO BID 5 Days Qty: 10 0RF guaifenesin [Mucinex] 600 mg tablet extended release 12hr 600 mg PO BID PRN (Reason: cough) Qty: 30 0RF levofloxacin 750 mg tablet 750 mg PO DAILY 7 Days Qty: 7 0RF promethazine-DM 6.25-15 mg/5 mL syrup 5 ml PO Q6H PRN (Reason: cough) Qty: 118 0RF Referrals Follow up/Referrals: Scott Kendall MD [Primary Care Provider] - See instructions Activity Restrictions/Add. Instructions Additional Instructions/Restrictions: Start antibiotic today. Be sure to complete entire prescription even if feeling better Monitor temp. Tylenol every 4 hours as needed and / or ibuprofen every 6 hours as needed ( As long as your primary care physician has told you that it ok to take both. For fever/aches/pains ER if no less than 101 despite Tylenol or Motrin Humidifier/vaporizer or hot steamy shower Inhaler every 4-6 hours as needed like we discussed. If unsure how to use it, ask pharmacist to demonstrate how. Should help open airways and improve cough, wheezing, and shortness of breath Mucinex during the day for your cough and cough suppressant only at night. Be sure to drink lots of water. *Start steroid today. Helps with inflammation therefore, cough and wheezing. Follow directions on the package. Reviewed side effects. Patient reports taking them before. Follow up IMMEDIATELY for new or worsening of symptoms OR no noticeable improvement over the next 48-72 hours. 911 immediately for any life threatening symptoms such as chest pain or difficulty breathing Clinical Impressions Clinical Impression: Bronchitis, Sinusitis Instructions Patient Instructions: DI for Sinusitis, Sinusitis, Acute Bronchitis Discharge ED Provider: Taylor Whitfield [facility] General Stated complaint: SOA, Cough, drainage, congestion Mode of Arrival: Ambulatory Source of Information: Patient Limitations: No Limitations Time Seen by Provider: 12/22/22 10:50 Description of Symptoms (Recalled from Triage Doc. by RN): Patient complaint of cough and shortness of breath for 3 days now. HEENT Symptoms (Recalled from RN notes): No Resp Symptoms (Recalled from RN notes): Yes Skin Symptoms (Recalled from RN notes): No MS Symptoms (Recalled from RN
[2022-12-22 11:02] VITALS: BP 151/68; PULSE 92; RESP 18; TEMP 36.7; O2SAT 97
== END 2022-12-22 11:03 | disposition home or self-care (01) ==
PROVIDERS: Emergency Provider Nurse Practitioner; PCP Family Medicine
DX: J20.9 Acute bronchitis, unspecified (principal); J01.90 Acute sinusitis, unspecified; R06.02 Shortness of breath; F17.210 Nicotine dependence, cigarettes, uncomplicated
CPT/HCPCS: 99212; 99214; G0463

== ENCOUNTER 2023-01-11 10:54 | Emergency (ER) | payer MEDICARE, SELFPAY ==
--- NOTE | 2023-01-11 10:53 | ECG_ITS ---
APPROVED REPORT Exam: Resting ECG HR:79 bpm ECG Measurements Heart Rate 79 AXES MI 151 P 46 QRSd 81 QRS -53 QT 351 T 9 QTc 386 Conclusion SINUS RHYTHM LEFT AXIS DEVIATION [QRS AXIS < -30] Left atrial abnormality Late R wave progression No changes over baseline ecg ABNORMAL ECG UNCONFIRMED REPORT Electronically signed by : Rito Jaramillo MD 01/11/2023 20:11:09
[2023-01-11 11:01] VITALS: BP 108/66; BP 132/81; PULSE 84; PULSE 85; RESP 17; RESP 20; TEMP 36.9; O2SAT 94; O2SAT 98; BMI 32.0
--- NOTE | 2023-01-11 11:01 | XR_ITS ---
FINAL REPORT CLINICAL HISTORY: cp COMPARISON: 10/05/2022 FINDINGS: SINGLE-VIEW CHEST The heart size is normal. The mediastinum is normal. There are mild chronic changes at the bases. There is no pneumothorax. IMPRESSION: No acute cardiopulmonary process. Reviewed, Interpreted and Dictated by Sb Mccoy MD Transcribed by Maryjo Mack Authenticated and . [facility]
--- NOTE | 2023-01-11 11:03 | HMH.EDGENADL ---
Discharge Plan Disposition Patient Disposition: Home, Self-Care Condition: Fair Prescriptions Prescriptions: New prednisone 50 mg tablet 50 mg PO DAILY 5 Days Qty: 5 0RF No Action aspirin 81 mg tablet,delayed release (DR/EC) 81 mg PO DAILY Qty: 30 5RF atorvastatin 80 mg tablet See Rx Instructions .ROUTE .COMPLEX Qty: 90 3RF Dose Instruction: TAKE 1 TABLET BY MOUTH ONCE DAILY FOR CHOLESTEROL Rx Instructions: TAKE 1 TABLET BY MOUTH ONCE DAILY FOR CHOLESTEROL clopidogrel 75 mg tablet 75 mg PO DAILY Qty: 90 4RF Praluent Pen 150 mg/mL pen injector 150 mg SQ Q14D Qty: 2 5RF Rx Instructions: inject into abdomen, thigh, or upper arm (deltoid muscle); rotate sites nitroglycerin 0.4 mg tablet, sublingual 0.4 mg SUBLINGUAL Q5M PRN (Reason: angina) Qty: 25 0RF diltiazem HCl 240 mg capsule,extended release 24hr 240 mg PO DAILY Qty: 90 2RF cetirizine 10 MG tablet 10 mg PO DAILY albuterol sulfate [Proventil HFA] 90 mcg/actuation HFA aerosol inhaler 1 inh inhalation Q6H PRN (Reason: shortness of breath or wheezing) Qty: 8.5 0RF prednisone [prednisone] 20 mg tablet 20 mg PO BID 5 Days Qty: 10 0RF guaifenesin [Mucinex] 600 mg tablet extended release 12hr 600 mg PO BID PRN (Reason: cough) Qty: 30 0RF levofloxacin 750 mg tablet 750 mg PO DAILY 7 Days Qty: 7 0RF promethazine-DM 6.25-15 mg/5 mL syrup 5 ml PO Q6H PRN (Reason: cough) Qty: 118 0RF albuterol sulfate [Proventil HFA] 90 mcg/actuation HFA aerosol inhaler 1 - 2 inh inhalation Q6H PRN (Reason: shortness of breath or wheezing) Qty: 8.5 0RF azithromycin [Zithromax Z-Christoph] 250 mg tablet See Rx Instructions .ROUTE .COMPLEX 5 Days Qty: 6 0RF Rx Instructions: For 250 mg dose pack: take 500 mg today (day 1), then 250 mg for 4 days (days 2-5) prednisone [prednisone] 20 mg tablet 20 mg PO BID 5 Days Qty: 10 0RF guaifenesin [Mucinex] 600 mg tablet extended release 12hr 600 - 1,200 mg PO BID PRN (Reason: cough) Qty: 20 0RF Referrals Follow up/Referrals: Scott Kendall MD [Primary Care Provider] - See instructions Clinical Impressions Clinical Impression: Bronchitis Instructions Patient Instructions: DI for Acute Bronchitis Discharge ED Provider: Toro Gutierrez General Adult HPI General Chief complaint: PAIN Stated complaint: chest pain Time Seen by Provider: 01/11/23 11:45 History of Present Illness HPI narrative: This is a 67-year-old female with a history of both cardiac and lung disease who presents today with acute onset left-sided chest pain described as sharp worse with deep inspiration and accompanied by clear cough no hemoptysis no orthopnea or pedal edema no weight loss or night sweats. There is no nausea vomiting or diaphoresis. Patient continues to smoke tobacco. Related Data Home Medications Medication Instructions Recorded Confirmed cetirizine 10 mg tablet 10 mg PO DAILY allergies 03/05/19 05/12/22 Previous Rx's Medication Instructions Recorded nitroglycerin 0.4 mg sublingual 0.4 mg sublingual Q5M PRN angina 10/04/17 tablet #25 tabs aspirin 81 mg tablet,delayed 81 mg PO DAILY Heart disease #30 09/01/20 release tabs atorvastatin 80 mg tablet See Rx Instructions .Route 11/10/21 .COMPLEX #90 tabs clopidogrel 75 mg tablet 75 mg PO DAILY Blood thinner #90 11/10/21 tabs albuterol sulfate 90 mcg/actuation 1 inh inhalation Q6H PRN shortness 05/12/22 aerosol inhaler (Proventil HFA) of breath or wheezing #8.5 grams alirocumab 150 mg/mL subcutaneous 150 mg SQ Q14D #2 mL 05/12/22 pen injector (Praluent Pen) diltiazem HCl 240 mg 240 mg PO DAILY #90 caps 06/01/22 capsule,extended release 24 hr guaifenesin 600 mg tablet, 600 mg PO BID PRN cough #30 tabs 07/27/22 extended release 12 hr (Mucinex) levofloxacin 750 mg tablet 750 mg PO DAILY 7 days #7 tabs 07/27/22 prednisone 20 mg tablet 20 mg PO BID 5 days #10 tabs 07/27/22 promethazine-
[2023-01-11 11:10] LABS: Basophils # 0.1 K/mm3 (0-0.2); Basophils % 0.7 % (0.1-2.0); Chloride 104 mmol/L (98-107); Eosinophils # 0.3 K/mm3 (0.0-0.4); Eosinophils % 2.6 % (0.1-12.0); Hematocrit 50.2 % (37.0-47.0); Hemoglobin 17.3 g/dL (12.2-16.2); Lymphocytes # 2.9 K/mm3 (0.7-4.5); Mean Corpuscular HGB Conc 34.5 g/dL (31.8-35.4); Mean Corpuscular Hemoglobin 30.1 pg (27.0-31.2); Mean Corpuscular Volume 87.3 fl (81-99); Mean Platelet Volume 8.1 fl (7.4-10.4); Monocytes # 0.6 K/mm3 (0.1-1.0); Monocytes % 6.8 % (1.7-9.3); Neutrophils # 5.5 K/mm3 (1.8-7.8); Neutrophils % 58.9 % (37.0-80.0); Platelet Count 241 K/mm3 (142-424); Potassium 4.4 mmoL/L (3.5-5.1); Red Blood Count 5.75 M/mm3 (4.20-5.40); Sodium 138 mmol/L (136-145); White Blood Count 9.3 K/mm3 (4.8-10.8)
[2023-01-11 11:13] LABS: Alanine Aminotransferase 42 U/L (12-78); Albumin Level 4.4 g/dl (3.5-5.0); Albumin/Globulin Ratio 1.8 (1.1-1.8); Alkaline Phosphatase 194 U/L (38-126); Anion Gap 14.4 mEq/L (5-15); Aspartate Amino Transferase 37 U/L (14-36); Bilirubin,Total 0.4 mg/dl (0.2-1.3); Blood Urea Nitrogen 8 mg/dl (7-17); Calcium 9.5 mg/dl (8.4-10.2); Carbon Dioxide 24 mmol/L (22.0-30.0); Creatinine Clearance Estimated 69 mL/min (50-200); Estimated Glomerular Filt Rate 84 ml/min (>60); GFR (African American) 101 ML/MIN (>60); Globulin 2.5 g/dL (1.3-3.2); Glucose 99 mg/dl (74-100); Total Protein,Serum 6.9 g/dl (6.3-8.2)
[2023-01-11 11:23] LABS: NT Pro Brain Natriuretic Pep. < 20.0 pg/mL (0-125)
[2023-01-11 11:26] LABS: Troponin I < 0.01 ng/ml (0.00-0.034)
[2023-01-11 11:30] VITALS: BP 94/57; PULSE 79; RESP 18; O2SAT 98
[2023-01-11 12:00] VITALS: BP 110/70
[2023-01-11 12:12] LABS: Lactic Acid 1.2 mmol/L (0.7-2.1)
[2023-01-11 12:30] VITALS: BP 102/67; PULSE 88; O2SAT 92
--- NOTE | 2023-01-11 12:34 | PC.NURSE ---
Rounded on patient; no needs at this time. pt has family at BS, aware that we are still waiting on test results
[2023-01-11 13:00] VITALS: BP 125/80; PULSE 78; RESP 15; O2SAT 95
[2023-01-11 13:40] VITALS: BP 125/80; PULSE 78; RESP 15; TEMP 36.9; O2SAT 98
== END 2023-01-11 13:41 | disposition home or self-care (01) ==
PROVIDERS: Emergency Provider Emergency Medicine; PCP Family Medicine
DX: J20.9 Acute bronchitis, unspecified (principal); R07.1 Chest pain on breathing; F17.210 Nicotine dependence, cigarettes, uncomplicated; R94.31 Abnormal electrocardiogram [ECG] [EKG]
CPT/HCPCS: 71045; 80053; 83605; 83880; 84484; 85025; 87040; 93005; 99284

== ENCOUNTER 2024-03-14 14:12 | Outpatient (CLI) | payer MEDICARE, SELFPAY ==
[2024-03-14 14:54] LABS: Basophils # 0.1 K/mm3 (0-0.2); Basophils % 1.1 % (0.1-2.0); Eosinophils # 0.3 K/mm3 (0.0-0.4); Eosinophils % 2.8 % (0.1-12.0); Hematocrit 47.4 % (37.0-47.0); Hemoglobin 15.5 g/dL (12.2-16.2); Lymphocytes # 3.5 K/mm3 (0.7-4.5); Mean Corpuscular HGB Conc 32.8 g/dL (31.8-35.4); Mean Corpuscular Hemoglobin 31.1 pg (27.0-31.2); Mean Corpuscular Volume 94.9 fl (81-99); Mean Platelet Volume 8.5 fl (7.4-10.4); Monocytes # 0.8 K/mm3 (0.1-1.0); Monocytes % 6.7 % (1.7-9.3); Neutrophils % 59.3 % (37.0-80.0); Platelet Count 293 K/mm3 (142-424); Red Blood Count 4.99 M/mm3 (4.20-5.40); White Blood Count 11.7 K/mm3 (4.8-10.8)
[2024-03-14 15:22] LABS: Alanine Aminotransferase 35 U/L (12-78); Albumin Level 4.4 g/dl (3.5-5.0); Alkaline Phosphatase 161 U/L (38-126); Anion Gap 10.5 mEq/L (5-15); Aspartate Amino Transferase 34 U/L (14-36); Bilirubin,Indirect 0.5 mg/dL (0.0-0.9); Bilirubin,Total 0.5 mg/dl (0.2-1.3); Bilirubin,Unconjugated 0.6 mg/dL (0.0-1.1); Blood Urea Nitrogen 10 mg/dl (7-17); Calcium 9.5 mg/dl (8.4-10.2); Carbon Dioxide 26 mmol/L (22.0-30.0); Chloride 105 mmol/L (98-107); Chol/HDL Ratio 4.7 (1-3.5); Cholesterol 266 mg/dl (140-200); Estimated Glomerular Filt Rate 100 ml/min (>60); GFR (African American) 121 ML/MIN (>60); Glucose 88 mg/dl (74-100); HDL Cholesterol 57 mg/dl (40-60); Magnesium 2.1 mg/dl (1.6-2.3); Potassium 4.5 mmoL/L (3.5-5.1); Sodium 137 mmol/L (136-145); Total Protein,Serum 6.7 g/dl (6.3-8.2); Triglycerides 325 mg/dl (30-150); VLDL Cholesterol 65 mg/dL (0-40)
[2024-03-14 15:32] LABS: Direct LDL Cholesterol 154.05 mg/dL (100-129)
[2024-03-14 15:38] LABS: Free T4 (Free Thyroxine) 1.05 ng/dl (0.78-2.19)
[2024-03-14 15:52] LABS: Thyroid Stimulating Hormone 1.24 uIU/mL (0.465-4.68)
== END 2024-03-14 23:59 | disposition home or self-care (01) ==
LOC: LAB 14:13
PROVIDERS: PCP Family Medicine; Visit Provider Physician Assistant
DX: I11.9 Hypertensive heart disease without heart failure (principal); Z95.5 Presence of coronary angioplasty implant and graft; E78.2 Mixed hyperlipidemia; F17.200 Nicotine dependence, unspecified, uncomplicated; I25.10 Atherosclerotic heart disease of native coronary artery without angina pectoris; E78.5 Hyperlipidemia, unspecified; R06.00 Dyspnea, unspecified
CPT/HCPCS: 36415; 80048; 80061; 80076; 83735; 84439; 84443; 85025

== ENCOUNTER 2024-07-03 10:37 | Emergency (ER) | payer MEDICARE, SELFPAY ==
[2024-07-03 10:50] VITALS: BP 161/80; PULSE 100; RESP 21; TEMP 36.9; O2SAT 95; BMI 33.5
--- NOTE | 2024-07-03 10:54 | ED_ITS ---
Discharge Plan Disposition Patient Disposition: Home, Self-Care Condition: Good Prescriptions Prescriptions: New azithromycin [Zithromax] 250 mg tablet 250 mg PO UD DOSE PK Qty: 6 0RF Rx Instructions: Take two (2) tablets today, then one (1) tablet days #2 thru #5 methylprednisolone 4 mg Tablets,Dose Pack 4 mg PO DIRECTED 6 Days Qty: 21 0RF Rx Instructions: Take 1 pack as directed for 6 days benzonatate 100 mg capsule 100 mg PO TIDP PRN (Reason: Cough) Qty: 30 0RF nystatin 100,000 unit/mL suspension 500,000 unit buccal QID 10 Days Qty: 200 0RF fluconazole 150 mg tablet 150 mg PO ONCE Qty: 1 3RF No Action atorvastatin 80 mg tablet 80 mg PO HS Patient Comments: TAKE 1 TABLET BY MOUTH ONCE DAILY FOR CHOLESTEROL diltiazem HCl [DILT-XR] 240 mg capsule,ext.rel 24h degradable 240 mg PO DAILY Patient Comments: TAKE 1 CAPSULE BY MOUTH ONCE DAILY clopidogrel 75 mg tablet 75 mg PO DAILY Patient Comments: TAKE 1 TABLET BY MOUTH ONCE DAILY FOR BLOOD THINNER sertraline 50 mg tablet 50 mg PO DAILY Patient Comments: TAKE 1 TABLET BY MOUTH ONCE DAILY Repatha SureClick 140 mg/mL pen injector See Rx Instructions .ROUTE .COMPLEX Rx Instructions: . Referrals Follow up/Referrals: Scott Kendall MD [Primary Care Provider] - See instructions Activity Restrictions/Add. Instructions Additional Instructions/Restrictions: Drink plenty of fluids. Take tylenol for pain or fever. Take the medications as directed. Follow up with your regular doctor. GO TO THE ER FOR ANY WORSENING SYMPTOMS Clinical Impressions Clinical Impression: Acute bronchitis Qualifiers: Bronchitis organism: unspecified organism Qualified Code(s): J20.9 - Acute bronchitis, unspecified Sinusitis Qualifiers: Sinusitis location: unspecified location Chronicity: unspecified Qualified Code(s): J32.9 - Chronic sinusitis, unspecified Instructions Patient Instructions: Sinusitis, DI for Sinusitis Print Language Print Language: Latvian Discharge ED Provider: Chadd Jaimes [facility] General Stated complaint: chest/head congestion Time Seen by Provider: 07/03/24 10:54 Related Data Home Medications ?Medication ?Instructions ?Recorded ?Confirmed atorvastatin 80 mg tablet 80 mg PO HS 07/03/24 07/03/24 clopidogrel 75 mg tablet 75 mg PO DAILY 07/03/24 07/03/24 diltiazem HCl 240 mg 240 mg PO DAILY 07/03/24 07/03/24 capsule,extended release 24 hr, controlled (DILT-XR) evolocumab 140 mg/mL subcutaneous See Rx Instructions .Route .COMPLEX 07/03/24 07/03/24 pen injector (Cierra Dave) sertraline 50 mg tablet 50 mg PO DAILY 07/03/24 07/03/24 Previous Rx's ?Medication ?Instructions ?Recorded azithromycin 250 mg tablet 250 mg PO UD DOSE PK #6 tabs 07/03/24 (Zithromax) benzonatate 100 mg capsule 100 mg PO TIDP PRN Cough #30 caps 07/03/24 fluconazole 150 mg tablet 150 mg PO ONCE 1 dose #1 tab 07/03/24 methylprednisolone 4 mg tablets in 4 mg PO DIRECTED 6 days #21 tabs 07/03/24 a dose pack nystatin 100,000 unit/mL oral 500,000 unit (5 mL) buccal QID 10 07/03/24 suspension days #200 mL Allergies Allergy/AdvReac Type Severity Reaction Status Date / Time Penicillins (PENICILLINS) Allergy Mild Verified 03/14/24 13:40 bee venom protein (honey bee) Allergy Verified 03/14/24 13:40 [facility] Disclaimer: The information contained in this section may have been updated after the patient was seen, as this information can be updated by other users. Medical History Dyspnea Social History Smoking Status: Current every day smoker tobacco type: cigarettes packs per day: 1 second hand exposure: Yes alcohol intake: never substance use type: denies use current occupational status: other Travel in the last 8 weeks: None household members: spouse housing: house current occupation: [employer] current occupational exposures/hazards: No caffeine: Yes ROS Obtained: Yes All systems reviewed & no additional complaints except as documented Constitutional Constitutional: Reports poor appetite Eyes Eyes: Reports system reviewed and no additional complaints, except as documented ENT Ears, Nose, Mouth, and Throat: Reports as per HPI Cardiovascular Cardiovascular: Reports system reviewed and no additional complaints, except as documented and Denies chest pain Respiratory Respiratory: Denies shortness of breath, Reports chest congestion, Reports cough, Denies stridor and Denies wheezing Gastrointestinal Gastrointestingal: Reports system reviewed and no additional complaints, except as documented; Denies abdominal pain, diarrhea or vomiting Musculoskeletal Musculoskeletal: Reports system reviewed and no additional complaints, except as documented and Denies arthralgias Integumentary/Breasts Skin/Breast: Reports system reviewed and no additional complaints, except as documented and Denies rash Neurologic Neurologic: Denies paresthesias Allergic/Immunologic Allergic/Immunologic: Denies wheezing Physical Exam General General appearance: alert and in no apparent distress Eye Eye exam: Present normal appearance, PERRL and EOMI ENT ENT exam: Present mucous membranes moist and normal external ear exam Expanded ENT Exam External ear exam: Present normal external inspection TM/Canal exam: Bilateral TM: erythema and bulging Nose exam: Absent sinus tenderness Nasal speculum exam: Bilateral: normal Mouth exam: Present normal external inspection; Absent drooling Teeth exam: Present normal inspection Throat exam: Present tonsillar erythema and tonsillomegaly Neck Neck exam: Present normal inspection, full ROM and trachea midline; Absent tenderness, lymphadenopathy or thyromegaly Chest Chest inspection: Present normal inspection and symmetric chest wall rise; Absent tenderness or rash Respiratory Respiratory exam: Present normal lung sounds bilaterally; Absent respiratory distress, wheezes, stridor or accessory muscle use Cardiovascular Cardiovascular exam: Present regular rate, normal rhythm and normal heart sounds Abdominal Exam Abdominal exam: Present soft; Absent distention, tenderness, guarding, rebound or rigidity Extremities Exam Extremities exam: Present normal inspection, full ROM and normal capillary refill; Absent tenderness or calf tenderness Back Exam Back exam: Present normal inspection and full ROM; Absent tenderness Neurological Exam Neurological exam: Present alert and oriented X3 Psychiatric Psychiatric exam: Present normal affect and normal mood Skin Skin exam: Present warm, dry, intact and normal color Lymphatic Lymphatic Findings: no adenopathy Medical Decision Making Medical Records Medical records reviewed: No I reviewed the patient's medical records. Screening: Per USPSTF and CDC recommendations, given the prevalence of disease in our region, it is our hospital?s policy to screen for HIV and viral Hepatitis for all patients aged 18 and over and those with ongoing risk factors. Barber Inquiry Pt receiving controlled substance: No Lab Data Lab results reviewed: Yes I reviewed the patient's lab results.
[2024-07-03 11:57] VITALS: BP 161/80; PULSE 100; RESP 21; TEMP 36.9; O2SAT 95
[2024-07-03 12:10] LABS: Coronavirus 19, PCR Not Detected (NotDetected); Influenza A, PCR Not Detected (NotDetected); Influenza B, PCR Not Detected (NotDetected)
--- OUTSIDE RECORDS SUMMARY | 2024-07-03 23:06 | XMS_ITS | Clinical Summary ---
Author Organization [facility] Address [address] [place] [address] Care Team Providers Care Clerical And Office Support Workers Name Role Phone Unavailable Primary Care Provider Unavailabl e Social History Tobacco Use Types Packs/Day Years Used Date Smoking Tobacco: Never Assessed Sex and Gender Information Value Date Recorded Sex Assigned at Not on file Gender Identity Not on file Sexual Orientation Not on file Plan of Treatment Not on file
--- OUTSIDE RECORDS SUMMARY | 2024-07-03 23:06 | XMS_ITS | Encounter Summary ---
Author Organization [facility] Address [address] [place] [address] Care Team Providers Care Inspector Eyeglass Frames Name Role Phone Unavailable Primary Care Provider Unavailabl e Encounter Details Date Type Department Care Team (Late st Contact Info) Description 12/14/2016 12:33 AM EDT - 12/14/2016 11:59 PM EDT Hospital Encounter [facility] [address] [place] [address] System, Referring Not In Visit for screening mammogram Discharge Disposition: OP AUTODISCHARGED Social History Tobacco Use Types Packs/Day Years Used Date Smoking Tobacco: Never Assessed Sex and Gender Information Value Date Recorded Sex Assigned at Not on file Gender Identity Not on file Sexual Orientation Not on file documented as of this encounter Plan of Treatment Not on file documented as of this encounter Visit Diagnoses Diagnosis Visit for screening mammogram Other screening mammogram documented in this encounter
== END 2024-07-03 12:04 | disposition home or self-care (01) ==
PROVIDERS: Emergency Provider Nurse Practitioner Family; PCP Family Medicine
DX: J20.9 Acute bronchitis, unspecified (principal); J32.9 Chronic sinusitis, unspecified
CPT/HCPCS: 87636; 99213; G0381

== ENCOUNTER 2025-01-07 11:19 | Outpatient (CLI) | payer MEDICARE, SELFPAY ==
--- NOTE | 2025-01-07 11:21 | XR_ITS ---
FINAL REPORT TECHNIQUE: Chest PA & Lateral CLINICAL HISTORY: Cough/chest congestion x 1 month COMPARISON: 01/11/2023 FINDINGS: 2 views of the chest were performed. The heart size is normal. The mediastinum is within normal limits. There is no acute cardiopulmonary process. There are no pleural effusions. There is no pneumothorax. The bony thorax appears intact. IMPRESSION: No acute cardiopulmonary process. Reviewed, Interpreted and Dictated by Sb Mccoy MD Transcribed by Grecia Lacy Authenticated and [facility]
== END 2025-01-07 23:59 | disposition home or self-care (01) ==
LOC: RAD 11:20
PROVIDERS: PCP Family Medicine; Visit Provider Nurse Practitioner
DX: R09.89 Other specified symptoms and signs involving the circulatory and respiratory systems (principal); R05.9 Cough, unspecified
CPT/HCPCS: 71046

== ENCOUNTER 2025-02-01 10:44 | Outpatient (CLI) | payer MEDICARE, SELFPAY ==
[2025-02-01 14:23] LABS: Hematocrit 48.6 % (37.0-47.0); Hemoglobin 16.1 g/dL (12.2-16.2); Immature Granulocytes % 0.6 %; Mean Corpuscular HGB Conc 33.1 g/dL (31.8-35.4); Mean Corpuscular Hemoglobin 29.9 pg (27.0-31.2); Mean Corpuscular Volume 90.2 fl (81-99); Nucleated Red Blood Cells % 0 %; Platelet Count 265 K/mm3 (142-424); Red Blood Count 5.39 M/mm3 (4.20-5.40); Red Cell Distribution Width-SD 41.8 fL; White Blood Count 9.3 K/mm3 (4.8-10.8)
[2025-02-01 14:53] LABS: Alanine Aminotransferase 33 U/L (12-78); Albumin Level 4.8 g/dl (3.5-5.0); Albumin/Globulin Ratio 2.3 (1.1-1.8); Alkaline Phosphatase 176 U/L (38-126); Anion Gap 18.2 mEq/L (5-15); Aspartate Amino Transferase 31 U/L (14-36); Bilirubin,Total 0.6 mg/dl (0.2-1.3); Blood Urea Nitrogen 7 mg/dl (7-17); Calcium 10.0 mg/dl (8.4-10.2); Carbon Dioxide 25 mmol/L (22.0-30.0); Chloride 99 mmol/L (98-107); Cholesterol 252 mg/dl (140-200); Creatinine,Serum 0.60 mg/dl (0.52-1.04); Estimated Glomerular Filt Rate 99 ml/min (>60); GFR (African American) 120 ML/MIN (>60); Globulin 2.1 g/dL (1.3-3.2); Glucose 100 mg/dl (74-100); HDL Cholesterol 46 mg/dl (40-60); Potassium 4.2 mmoL/L (3.5-5.1); Sodium 138 mmol/L (136-145); Total Protein,Serum 6.9 g/dl (6.3-8.2); Triglycerides 381 mg/dl (30-150)
[2025-02-01 15:23] LABS: Thyroid Stimulating Hormone 1.32 uIU/mL (0.465-4.68)
== END 2025-02-01 23:59 | disposition home or self-care (01) ==
LOC: LAB.DROPOF 02-04 10:45
PROVIDERS: PCP Family Medicine; Visit Provider Family Medicine
DX: I11.9 Hypertensive heart disease without heart failure (principal); E78.2 Mixed hyperlipidemia
CPT/HCPCS: 80053; 80061; 84443; 85025

== ENCOUNTER 2025-02-19 13:20 | Outpatient (CLI) | payer MEDICARE, SELFPAY ==
--- OUTSIDE RECORDS SUMMARY | 2025-02-19 13:25 | XMS_ITS | Clinical Summary ---
Author Organization [facility] Address [address] [place] [address], [address] [place] [address] Care Team Providers Care Child Care Nurse Name Role Phone Unavailable Primary Care Provider Unavailabl e Social History Tobacco Use Types Packs/Day Years Used Date Smoking Tobacco: Never Assessed Comments Unknown Sex and Gender Information Value Date Recorded Sex Assigned at Not on file Legal Sex Female 3:15 AM EST Gender Identity Not on file Sexual Orientation Not on file Plan of Treatment Not on file
--- OUTSIDE RECORDS SUMMARY | 2025-02-19 13:25 | XMS_ITS ---
Author Organization Unknown Medications Date Medication Dosage DosageUnit StartDate StopDate StopReason Active DoseQuantity DoseUnit Dispense DispenseUnit Refills NdcCode DrugCode PharmacyId IsPrescription MappedMedication Srcstatus Custom 06/11 00:00 :00 Sertraline HCl 50 MG Tablet 1 90 Tablet 1 009 [id number] Start 06/11 00:00 :00 Sertraline HCl 50 MG Tablet 0 90 Tablet 1 009 [id number] Stop
--- NOTE | 2025-02-19 14:00 | CT_ITS ---
FINAL REPORT TECHNIQUE: Thin section axial images were obtained through the lungs using a low-dose technique per lung cancer screening protocol. Reconstruction images were obtained using the axial data. This study was performed with techniques to keep radiation doses as low as reasonably achievable, (ALARA). Individualized dose reduction techniques using automated exposure control or adjustment of mA and/or kV according to the patient's size were employed. CLINICAL HISTORY: Lung cancer screening Current smoker 1ppd x38 years COMPARISON: 06/28/2022 FINDINGS: CTDLvol: 2.90 DLP: 84.91 Current smoker 38 pack year history Lungs: The previously seen small left lower nodules are not visualized on today's exam. The 4 mm right lower lobe nodule is stable and seen on series 4 image 33. There is evidence of prior granulomatous disease. There are no new nodules. Lymph nodes: No thoracic lymphadenopathy. Mediastinum: Heart size is normal. There are prominent coronary artery calcifications. Pleura/pericardium: No pleural or pericardial effusion. A subcutaneous nodule along the midline back at the level of the mid thoracic spine has increased in size measuring 28 mm, was 24 mm, favor sebaceous cyst. Other: No acute abnormality in the upper abdomen. IMPRESSION: Stable right lower lobe nodule. Resolved left lower lobe nodules. Prominent coronary artery calcifications. Lung RADS: 2S Modifier S: Coronary artery calcifications. Recommendation: 12-month follow-up low-dose chest CT. Reviewed, Interpreted and Dictated by Nirmala Spence MD Transcribed by Grecia Lacy Authenticated and [facility]
--- NOTE | 2025-02-19 14:30 | MM_ITS ---
PROCEDURE INFORMATION: Exam: MG Bilateral Screening 3D Mammography Exam date and time: 02/19/2025 2:12 PM Age: 69 years old Clinical indication: Screening examination TECHNIQUE: Imaging protocol: Bilateral Screening tomosynthesis and 2D mammography including computer-aided detection (CAD) when performed. COMPARISON: 1. MG MM DIG SCREENING MAMM BI W/CAD 06/28/2022 7:50 AM 2. MG SCBI MM Dig screening mamm BI w/CAD 08/23/2018 8:53 AM FINDINGS: MAMMOGRAPHY: Breast composition: The breasts are almost entirely fatty. Mass: None. Architectural distortion: None. Calcifications: No suspicious calcifications. Asymmetric density: None. Skin thickening: None. Axillary adenopathy: None. IMPRESSION: No mammographic evidence of malignancy. Annual screening is recommended unless otherwise clinically indicated. ASSESSMENT: BI-RADS Category 1: Negative.
== END 2025-02-19 23:59 | disposition home or self-care (01) ==
LOC: RAD 13:21
PROVIDERS: PCP Family Medicine; Visit Provider Family Medicine
DX: Z12.31 Encounter for screening mammogram for malignant neoplasm of breast (principal); I25.10 Atherosclerotic heart disease of native coronary artery without angina pectoris; R92.313 Mammographic fatty tissue density, bilateral breasts; R91.8 Other nonspecific abnormal finding of lung field; J44.9 Chronic obstructive pulmonary disease, unspecified; F17.210 Nicotine dependence, cigarettes, uncomplicated
CPT/HCPCS: 71271; 77063; 77067

== ENCOUNTER 2025-05-09 09:30 | Day surgery (SDC) | payer MEDICARE, SELFPAY ==
--- NOTE | 2025-05-08 15:15 | EXP.HP ---
History of Present Illness *Admission Date: 05/09/25 *History of present illness: Mrs. Lambert is a 69-year-old female who is here for screening colonoscopy. The patient does have a family history of pancreatic cancer and has a chronically elevated alkaline phosphatase. The patient does have a history of biliary dyskinesia and had a prior nonfunctioning gallbladder (HIDA scan with ejection fraction of 18%) and had cholecystectomy (Jr Baeza M.D.) in September 2018. The examination is deemed medically necessary for screening colonoscopy. The patient has been seen, interviewed and examined prior to the procedure by both myself and the anesthesia provider. [facility] Disclaimer: The information contained in this section may have been updated after the patient was seen, as this information can be updated by other users. Medical History Smoker Wheeze Very heavy cigarette smoker Abnormal result of cardiovascular function study Typical angina Tobacco abuse Electrocardiogram abnormal Coronary arteriosclerosis Abdominal pain Tobacco abuse counseling Lung nodule Smoking greater than 30 pack years Influenza A Nausea Diarrhea Viral URI with cough Acute bronchitis Sinusitis Viral URI Foot sprain Elbow contusion Sinusitis Otitis media Right otitis media Exposure to COVID-19 virus Bronchitis Rib pain on right side Fall Closed head injury Sinusitis Bronchitis Colon cancer screening Breast cancer screening Dyspnea Surgical History History of carpal tunnel repair History of cholecystectomy History of heart artery stent Family History Other Lung cancer Social History (Updated 05/09/25 @ 10:05 by Ellen Conteh RN) Smoking Status: Current every day smoker tobacco type: cigarettes packs per day: 1 second hand exposure: Yes alcohol intake: never substance use type: denies use current occupational status: other Travel in the last 8 weeks?: None household members: spouse housing: house current occupation: [employer] current occupational exposures/hazards: No caffeine: Yes Have you lived/traveled outside US in past 30 days?: No Contact w/someone who lives/traveled outside US past 30 days?: No Exposure to someone with infectious disease in past 14 days?: No Do you have a fever (greater than 100.4 F or 38 C)?: No Have you tested positive for COVID-19?: No Exposed to someone with COVID-19 in past 14 days?: No Do you have a sore throat?: No Do you have a cough?: No Do you have any weakness?: No Are you experiencing any nausea/vomitting?: No Do you have any diarrhea?: No Are you experiencing any unusual bleeding?: No Do you have any muscle aches/pain?: No Do you have any abdominal pain?: No Are you experiencing loss of taste or smell?: No Other Medical History Have you received the Flu Vaccine for this season: No Have you received the Pneumonia Vaccine: No Review of Systems Review of Systems Review of systems (narrative): Negative *Cardiovascular Comments: Negative *Gastrointestinal Comments: Negative *Genitourinary Comments: Negative *Musculoskeletal Comments: Negative *Neurologic Comments: Negative Meds Home Medications and Allergies Home Medications ?Medication ?Instructions ?Recorded ?Confirmed ?Type diltiazem HCl 240 mg 240 mg PO DAILY #90 caps 11/12/24 05/09/25 Rx capsule,extended release 24 hr, controlled (DILT-XR) aspirin 81 mg tablet 81 mg PO DAILY 02/01/25 05/09/25 History cetirizine 10 mg tablet (Zyrtec) 10 mg PO DAILY #30 tabs 02/01/25 05/09/25 Rx sertraline 50 mg tablet 50 mg PO DAILY #90 tabs 02/01/25 05/09/25 Rx atorvastatin 80 mg tablet 80 mg PO HS 90 days #90 tabs 02/06/25 05/09/25 Rx ipratropium bromide 17 1 inh inhalation Q6H #12.9 grams 02/06/25 05/09/25 Rx mcg/actuation HFA aerosol inhaler (Atrovent HFA) azelastine 137 mcg (0.1 %) nasal 2 spray intranasal HS 90 days #30 04/18/25 05/09/25 Rx spray mL fluticasone propionate 50 2 spray intranasal DAILY 90 days 04/18/25 05/09/25 Rx mcg/actuation nasal #16 grams spray,suspension (Flonase Allergy Relief) multivitamin with minerals-folic 0.4 tab PO DAILY 04/18/25 05/09/25 History acid 0.4 mg tablet (One Daily Womens 50 Plus) nicotine (polacrilex) 2 mg gum 2 mg buccal Q2H PRN nicotine 04/18/25 05/09/25 Rx cravings #100 ea sodium,potassium,mag sulfates 17.5 See Rx Instructions PO .COMPLEX 04/26/25 05/09/25 Rx gram-3.13 gram-1.6 gram oral soln #354 mL (Suprep Bowel Prep Kit) hydrochlorothiazide 25 mg tablet See Rx Instructions .Route 04/29/25 05/09/25 Rx .COMPLEX #90 tabs guaifenesin 600 mg tablet, 600 mg PO BID PRN congestion #30 05/03/25 05/09/25 Rx extended release 12 hr (Mucinex) tabs nystatin 100,000 unit/mL oral 1 ml PO QID 14 days #56 mL 05/03/25 05/09/25 Rx suspension varenicline tartrate 1 mg tablet 1 mg PO BID #56 tabs 05/03/25 05/09/25 Rx (Chantix Continuing Month Box) New Prescriptions to Start Prescriptions: Allergies Allergy/AdvReac Type Severity Reaction Status Date / Time Penicillins (PENICILLINS) Allergy Mild swelling Verified 05/09/25 10:12 all over body bee venom protein (honey bee) Allergy swelling Verified 05/09/25 10:12 all over body Exam *Routine HEENT Exam Head: Present normocephalic Eye: Present EOMI and PERRL ENT: Present mucous membranes moist *Routine Neck Exam Neck: Present supple *Routine Respiratory Exam Respiratory: Present CTA bilaterally *Routine Cardiovascular Exam Cardiovascular: Present RRR *Routine Abdominal Exam Abdominal: Present soft and normoactive bowel sounds; Absent tenderness *Routine Rectal Exam Rectal:: deferred *Routine Genitalia Exam Genitalia:: deferred *Routine Extremities Exam Extremities: Absent cyanosis, clubbing or edema *Routine Skin Exam Skin: Present warm; Absent rash *Routine Neurological Exam Neurological: Present alert and oriented X3 Assessment and Plan *Assessment and plan (1) Colon cancer screening: Status: Acute Category: Medical Code(s): Z12.11 - Encounter for screening for malignant neoplasm of colon (2) Family history of pancreatic cancer: Status: Acute Category: Medical Code(s): Z80.0 - Family history of malignant neoplasm of digestive organs (3) Elevated alkaline phosphatase level: Status: Acute Category: Medical Code(s): R74.8 - Abnormal levels of other serum enzymes Plan A/P: 1. Screening for colon cancer is the preprocedural diagnosis. The patient will be anesthetized/sedated using MAC sedation. The patient has been seen and examined. Cardiac and lung assessment prior to the examination is stable. Proceed with planned screening colonoscopy.
--- NOTE | 2025-05-09 07:14 | HMH.PROCNOTE ---
[facility] Procedure Note Date: 05/09/25 Time: 11:48 Procedure Note:: Colonoscopy Procedure Report: Colonoscopy with cold snare polypectomy Endoscopist: John Dunham II, MD Referring physician: SUSU Hancock Date of Procedure: May 09, 2025 Equipment: Olympus [id number] adult colonoscope Sedation: MAC sedation Indication: Mrs. Lambert is a 69-year-old female who is here for screening colonoscopy. The patient reports no abdominal pain, weight loss, change in her bowel habits or rectal bleeding. She reports no family history of colon cancer. Her last colonoscopy was 9 or 10 years ago. The patient does have a family history of pancreatic cancer (2 maternal uncles) and has a chronically elevated alkaline phosphatase. The patient does have a history of biliary dyskinesia and had a prior nonfunctioning gallbladder (HIDA scan with ejection fraction of 18%) and had cholecystectomy (Jr Baeza M.D.) in September 2018. The examination is deemed medically necessary for screening colonoscopy. Procedure: Prior to the procedure, a history and physical exam was performed, and patient's medications and allergies were reviewed. The risks, benefits and alternatives of the sedation and procedure were discussed with the patient. All questions were answered and informed consent was obtained. The patient was brought to the procedure room. Patient identification and proposed procedure were verified by the physician and the nurse. The patient was placed in a left lateral decubitus position and the scope was passed under direct vision. Throughout the procedure, the patient's blood pressure, pulse, and oxygen saturations were monitored continuously. The colonoscopy was accomplished without difficulty. The patient tolerated the procedure well. Findings: On digital rectal examination there was normal rectal tone. There were no external hemorrhoids. The colonoscope was introduced through the anal canal to the rectum and advanced to the cecum. The ileocecal valve and appendiceal orifice were identified. The scope was advanced a short distance into the ileum which appeared grossly normal. The scope was then withdrawn into the colon. There were 11 colon polyps (cecum x 2 (4 and 7 mm), ascending x 1 (4 mm), transverse x 4 (3, 3, 4 and 5 mm), descending x 2 (4 and 4 mm) and sigmoid x 2 (4 and 5 mm). The sigmoid polyps appeared hyperplastic and were removed but not retrieved. All of the polyps were removed via cold snare polypectomy. There were extensively scattered diverticuli throughout the descending and sigmoid colon (LEFT colon). The rectum itself was normal. Upon retroflexion within the rectum there were grade 1 internal hemorrhoids. The preparation was excellent throughout with [place] Preparation Score of 9. The cecal time was 12 minutes. Impression: 1. Diminutive colonic polyps x 11 2. Left-sided diverticulosis 3. Grade 1 internal hemorrhoids Plan: I will follow-up the polyp histology and recommend repeat screening/surveillance colonoscopy again in 3 years. I would encourage a fiber bowel regimen. Due to her chronically elevated alkaline phosphatase, I will send mitochondrial antibody and additional labs to rule out PBC or autoimmune cholangitis.
[2025-05-09 10:03] VITALS: BP 142/85; PULSE 87; RESP 16; TEMP 36.5; O2SAT 97; BMI 32.9
[2025-05-09] MEDS: LACTATED RINGERS 1000ML 1,000 ML 50 ML IV (10:16)
--- NOTE | 2025-05-09 10:33 | EXP.ANES.CKL ---
[facility] Disclaimer: The information contained in this section may have been updated after the patient was seen, as this information can be updated by other users. Medical History Smoker Wheeze Very heavy cigarette smoker Abnormal result of cardiovascular function study Typical angina Tobacco abuse Electrocardiogram abnormal Coronary arteriosclerosis Abdominal pain Tobacco abuse counseling Lung nodule Smoking greater than 30 pack years Influenza A Nausea Diarrhea Viral URI with cough Acute bronchitis Sinusitis Viral URI Foot sprain Elbow contusion Sinusitis Otitis media Right otitis media Exposure to COVID-19 virus Bronchitis Rib pain on right side Fall Closed head injury Sinusitis Bronchitis Colon cancer screening Breast cancer screening Dyspnea Surgical History History of carpal tunnel repair History of cholecystectomy History of heart artery stent Family History Other Lung cancer Social History (Updated 05/09/25 @ 10:05 by Ellen Conteh RN) Smoking Status: Current every day smoker tobacco type: cigarettes packs per day: 1 second hand exposure: Yes alcohol intake: never substance use type: denies use current occupational status: other Travel in the last 8 weeks?: None household members: spouse housing: house current occupation: [employer] current occupational exposures/hazards: No caffeine: Yes Have you lived/traveled outside US in past 30 days?: No Contact w/someone who lives/traveled outside US past 30 days?: No Exposure to someone with infectious disease in past 14 days?: No Do you have a fever (greater than 100.4 F or 38 C)?: No Have you tested positive for COVID-19?: No Exposed to someone with COVID-19 in past 14 days?: No Do you have a sore throat?: No Do you have a cough?: No Do you have any weakness?: No Are you experiencing any nausea/vomitting?: No Do you have any diarrhea?: No Are you experiencing any unusual bleeding?: No Do you have any muscle aches/pain?: No Do you have any abdominal pain?: No Are you experiencing loss of taste or smell?: No [facility] Anesthesia Checklist Patient Identification Patient Identification: Arm Band Structural Data Admitted From: Home Planned Operative Procedure/s: Colonoscopy Consent for Planned Operative Procedure(s) Verified: Yes Verified Documents: Surgical Consent and History and Physical NPO Status Verified Time NPO: 00:00 Additional verifications Anesthesia Reactions: No Hx Blood Transfusions: No Blood Transfusion Reaction: No Airway Assessment Mallampati Score:: Class II C-Spine Mobility Assessed: Yes TMJ Mobility Assessed: Yes Dentition: Good Dentition Neurological Assessment Level of Consciousness: Awake, Alert and Appropriate Anesthesia Plan Anesthesia Risk discussed: Yes Anesthesia Plan: Verified ASA Class: III Anesthesia Type: MAC
[2025-05-09 11:50] VITALS: BP 97/59; PULSE 80; RESP 16; TEMP 36.1; O2SAT 93
[2025-05-09 12:00] VITALS: BP 120/64; PULSE 82; RESP 16; O2SAT 95
[2025-05-09 12:10] VITALS: BP 131/80; PULSE 84; RESP 18; O2SAT 94
[2025-05-09 12:20] VITALS: BP 126/87; PULSE 83; RESP 16; O2SAT 95
--- NOTE | 2025-05-09 12:33 | SUR.PHASEII ---
Lab at bedside at this time
[2025-05-15 12:17] LABS: ALT (SGPT) P5P 38 IU/L (0-40); AST (SGOT) P5P 37 IU/L (0-40); Alpha 2-Macroglobulins, Qn 323 mg/dL (110-276); Bilirubin, Total <0.2 mg/dL (0.0-1.2); Cholesterol, Total 228 mg/dL (100-199); GGT 43 IU/L (0-60); Glucose 87 mg/dL (70-99); Triglycerides 289 mg/dL (0-149)
== END 2025-05-09 12:35 | disposition home or self-care (01) ==
PROVIDERS: PCP Family Medicine; Visit Provider Internal Medicine Gastroenterology
PROC: 0DJD8ZZ Inspection of Lower Intestinal Tract, Via Natural or Artificial Opening Endoscopic (ICD-10-PCS; CPT 45378; principal; 2025-05-09 11:30)
DX: Z12.11 Encounter for screening for malignant neoplasm of colon (principal); D12.3 Benign neoplasm of transverse colon; D12.0 Benign neoplasm of cecum; D12.2 Benign neoplasm of ascending colon; D12.4 Benign neoplasm of descending colon; K57.30 Diverticulosis of large intestine without perforation or abscess without bleeding; K64.0 First degree hemorrhoids; R74.8 Abnormal levels of other serum enzymes; F17.210 Nicotine dependence, cigarettes, uncomplicated; Z88.0 Allergy status to penicillin; I25.118 Atherosclerotic heart disease of native coronary artery with other forms of angina pectoris; Z80.0 Family history of malignant neoplasm of digestive organs; Z79.82 Long term (current) use of aspirin; Z90.49 Acquired absence of other specified parts of digestive tract
CPT/HCPCS: 45385; 36415; 82164; 82172; 82247; 82465; 82947; 82977; 83010; 83521; 84450; 84460; 84478; 86015; 86381; 88305; J2003; J2704; J7120

== ENCOUNTER 2025-05-13 09:16 | Outpatient (CLI) | payer MEDICARE, SELFPAY ==
--- NOTE | 2025-05-13 09:30 | US_ITS ---
FINAL REPORT CLINICAL HISTORY: Elevated alk phos/family history of pancrea ca COMPARISON: none FINDINGS: ULTRASOUND ABDOMEN FINDINGS: There is diffuse fatty change of the liver. There is a benign cyst in the left lobe measuring up to 17 mm. No evidence of metastatic disease. Spleen has a normal sonographic appearance. The gallbladder is surgically absent. No biliary ductal dilatation is identified. No evidence of biliary obstruction. There are complex cysts of the left kidney with internal echoes and septations. The right kidney is unremarkable. Pancreas is not well visualized. There is an abdominal aortic aneurysm measuring up to 37 mm. There is no obvious fluid collection. IMPRESSION: No evidence of metastatic disease. Fatty change of the liver. Indeterminate left renal lesions favored to represent complex cysts but CT or MRI characterization recommended. Abdominal aortic aneurysm. Continued surveillance recommended. Reviewed, Interpreted and Dictated by Mark Trejo MD Transcribed by Krystyna Ross Authenticated and [facility]
== END 2025-05-13 23:59 | disposition home or self-care (01) ==
LOC: RAD 09:17
PROVIDERS: PCP Family Medicine; Visit Provider Family Medicine
DX: I71.40 Abdominal aortic aneurysm, without rupture, unspecified (principal); K76.0 Fatty (change of) liver, not elsewhere classified; R93.422 Abnormal radiologic findings on diagnostic imaging of left kidney; R74.8 Abnormal levels of other serum enzymes; Z80.0 Family history of malignant neoplasm of digestive organs
CPT/HCPCS: 76700